=== PATIENT | female | born 1990 | race Caucasian/White ===

== ENCOUNTER 2021-07-28 13:40 | Outpatient (CLI) | payer BC, SELFPAY ==
--- NOTE | ~2021-07-28 | US_ITS ---
EXAMINATION: US OB limited DATE: 07/28/2021 15:55 INDICATION: Leaking fluids during third trimester . TECHNIQUE: Real-time ultrasound of the pelvis was performed. The interpreting radiologist was not pre sent for the study. COMPARISON: None. FINDINGS: There is a single living fetus in vertex presentation. The placenta is anterior. heart rate is 126 beats per minute (bpm). The amniotic fluid index is 15.0 cm, which is normal (normal range 6.9-2 7.9 cm). IMPRESSION: 1. Single living fetus in vertex presentation with heart rate of 126 bpm. 2. Normal amniotic fluid index of 15.0 cm. Reviewed, dictated and finalized at location B. LLE TRANSCRIBER IMPRESSION: 1. Single living fetus in vertex presentation with heart rate of 126 bpm . 2. Normal amniotic fluid index of 15.0 cm.
[2021-07-28 14:15] VITALS: BP 124/75; PULSE 108
[2021-07-28 14:16] VITALS: BP 121/74; PULSE 97
[2021-07-28 14:30] VITALS: BP 133/82; PULSE 96
[2021-07-28 14:46] VITALS: BP 125/78; PULSE 99
[2021-07-28 15:00] VITALS: BP 125/83; PULSE 92
--- NOTE | 2021-07-28 15:12 | PC.NURSE ---
1503- called,informed pt came in stating she has been leaking fluid since last Wednesday or Wednesday. She states today has been a bit more, and has noticed it 3 times since she woke up. ROM plus is negative, orders received for CARINE and if WNL may discharge home.
--- NOTE | 2021-07-28 15:23 | PM.OBTRLD ---
OB - Triage/Final Diagnosis Visit Information Date of evaluation: 07/28/21 Reason for evaluation: other (rule out rupture of membranes) Comments/Additional reasons for admission: I have assessed the risk for this patient, Dee Moy, and determined that she would benefit from observation care. Evaluation Vital signs: Vital Signs - 24 hr 07/28/21 14:15 07/28/21 14:16 07/28/21 14:30 Pulse Rate 108 H 97 96 Blood Pressure 124/75 121/74 133/82 07/28/21 14:46 07/28/21 15:00 Pulse Rate 99 92 Blood Pressure 125/78 125/83
== END 2021-07-28 16:20 | disposition home or self-care (01) ==
LOC: ANHOBOP 13:56 → ANHLDR 14:00
PROVIDERS: PCP Family Medicine; Visit Provider Obstetrics & Gynecology
DX: O42.913 Preterm premature rupture of membranes, unspecified as to length of time between rupture and onset of labor, third trimester (principal); Z3A.35 35 weeks gestation of pregnancy
CPT/HCPCS: 59025; 76815; 84112; 99199

== ENCOUNTER 2021-08-21 14:20 | Outpatient (CLI) | payer BC, SELFPAY ==
[2021-08-21 15:29] LABS: Hemoglobin 11.1 g/dL (12.0-15.0); Mean Corpuscular HGB Conc 32.6 g/dl (32-36); Mean Corpuscular Hemoglobin 28.2 pg (26-34); Mean Corpuscular Volume 86.5 fl (80-100); Platelet Count Result 253 k/mm3 (150-375); Red Blood Count 3.93 M/mm3 (4.2-5.4); Red Cell Distribution Width 13.3 % (11.5-14.5); White Blood Count 9.7 K/mm3 (4.5-10.0)
[2021-08-22 10:07] LABS: Rapid Plasma Reagin Non-Reactive (NonReactive)
== END 2021-08-21 14:21 | disposition home or self-care (01) ==
LOC: ANHLAB 14:23
PROVIDERS: PCP Family Medicine; Visit Provider Obstetrics & Gynecology
DX: Z01.818 Encounter for other preprocedural examination (principal)
CPT/HCPCS: 36415; 85027; 86592; 86850; 86900; 86901

== ENCOUNTER 2021-08-22 07:59 | Inpatient (IN) | payer BC, SELFPAY ==
--- NOTE | 2021-08-21 07:54 | P.HP_ITS ---
H&P: HPI History of Present Illness Date/Time: 08/21/21 07:54 31-year-old 3 para 1 this last menstruated unknown EDC is 08/28/2021 confirmed by early ultrasound presents for repeat section at term. She has an unfavorable cervix with a large baby. She declined . Risks and benefits of dissection reviewed Chief Complaint: Repeat section at term Review of Systems Review of Systems: All systems reviewed & are unremarkable except as noted in HPI and below PMFSH Family History Family History Father Mother High cholesterol Social History Social History Substance use: never Spiritual care concerns: No Meds Home Medications and Allergies Home Medications Medication Instructions Recorded Confirmed Type PNV cmb#95-ferrous fumarate-FA 1 tablet PO DAILY 08/08/21 08/08/21 History [] Allergies Allergy/AdvReac Type Severity Reaction Status Date / Time No Known Allergies Allergy Verified 08/08/21 12:33 Exam Const: General: no acute distress Eyes: General: appearance normal, both eyes and all related structures Neck: Neck: supple and no JVD Thyroid: thyroid normal Resp: Effort & Inspection: normal respiratory effort Auscultation: clear to auscultation bilaterally Cardio: Rate: regular rate Rhythm: regular rhythm GI: Inspection: non-distended GI Palp: Yes Soft to palpation, No Tenderness to palpation present (GI) and No Guarding due to palpation present (GI) Auscultation: normal bowel sounds : External Female Exam: normal external appearance Speculum Exam - Vagina: normal appearance of the vagina Speculum Exam - Cervix: normal appearance of the cervix Bimanual exam- vagina & uterus: enlarged (Gravid soft nontender) Skin: General skin exam: no rashes or lesions noted Extrem: General: normal to inspection and no edema Psych: Mental Status: mental status grossly normal Affect: normal affect Assessment and Plan Additional Plan Impression: Term with previous section plan: Repeat low- transverse section
[2021-08-22] VITALS (53 sets, daily range): BP systolic 85–137; BP diastolic 42–84; PULSE 60–142; RESP 15–18; TEMP 36.7–36.8; O2SAT 81–100; BMI 42.8
--- NOTE | 2021-08-22 07:26 | WPDHPUPDATE1 ---
History and Physical Update Update Date/Time: 08/22/21 07:26 History and Physical has been reviewed, including an updated exam of the patient. There are NO changes in the patient's condition. Risks, benefits, and alternatives have been discussed and questions answered. Patient agrees to proceed with procedure.
--- NOTE | 2021-08-22 08:18 | WPDANESEPP ---
Anes - Eval Pre Procedure Procedure: Operation Date: 08/22/21 10:00 Proposed Procedures p Repeat Section - Prashanth Singh MD Date/Time: 08/22/21 08:18 Pre Op Diagnosis: C Section Patient Data Age: 31 Gender: F Height: 1.7 m Weight: 124.2 kg Allergies Allergy/AdvReac Type Severity Reaction Status Date / Time No Known Allergies Allergy Verified 08/08/21 12:33 Home Medications Medication Instructions Recorded Confirmed Type PNV cmb#95-ferrous fumarate-FA 1 tablet PO DAILY 08/08/21 08/08/21 History [] hydrocodone-acetaminophen 1 tablet PO Q4H PRN #30 tablet 08/22/21 Rx Patient hx anesthesia problems: none Family hx anesthesia problems: none Results Review: All pre-operative results and documents have been reviewed as part of the pre-operative evaluation. [facility] Family History Family History Father Mother High cholesterol Social History Social History Substance use: never Spiritual care concerns: No Exam Day of Procedure 08/22/21 08:18
[2021-08-22] MEDS: LACTATED RINGERS 1,000 ML 125 ML IV CONT (08:30)
--- NOTE | 2021-08-22 08:30 | LDADM ---
This patient, Dee Moy, was admitted to Labor/Delivery/Recovery 119 on 08/22/21 at 07:59. Plans for labor, pain management and were discussed with patient. Patient/family oriented to hospital policies and general routines including ID bracelet, bed and alarms, visiting hours, pain management, procedures, bathroom and other care routines, personal items, smoking policy, room service/diet and guest tray routines, security routines, and visiting hours. Patient/Family are encouraged to report perceived risks to care and to ask questions if they do not understand what they are told or what they should do. See OBIX for further documentation.
[2021-08-22 09:32] LABS: Amphetamine Screen Urine Negative (Negative); Barbiturate Screen Urine Negative (Negative); Benzodiazepines Screen Urine Negative (Negative); Cannabinoid Screen Urine Negative (Negative); Cocaine Screen Urine Negative (Negative); Methadone Screen Urine Negative (Negative); Opiate Screen Urine Negative (Negative); Phencyclidine Screen Urine Negative (Negative)
[2021-08-22] MEDS: ceFAZolin 3 GM/D5W 100 ML 100 ML IVPB (10:02)
--- NOTE | 2021-08-22 10:06 | WPDANESEFPP ---
Anes - Eval Final PreProcedure Day of Procedure 08/22/21 10:06 Patient weight: morbidly obese Heart: regular rate and rhythm Lungs: clear to auscultation Airway: Mallampati scale Neurological: alert and oriented Last oral intake: >/= 8 hours ASA classification: II Emergent: no Anesthetic plan: proceed Anesthesia type and monitoring: regional spinal and standard monitoring Results Review: All pre-operative results and documents have been reviewed as part of the pre-operative evaluation. Informed Consent: The patient's anesthetic plan and its attendant risks and benefits were discussed with the patient/family/POA. Questions were solicited and answers provided to the satisfaction of the patient/family/POA.
[2021-08-22] MEDS: ONDANSETRON INJ 4 MG/2 ML VIAL IV PUSH (10:50)
--- NOTE | 2021-08-22 10:59 | W.PM.PROC2 ---
Procedure Note - Detailed Date of Procedure 08/22/21 Pre-op Diagnosis C Section Post-op Diagnosis same Procedure Performed Repeat low-transverse section Surgeon Prashanth Singh MD Anesthesia spinal Indications This is a 31-year-old multipara with previous section expected large baby Findings 9lb 3oz male with Apgars of 9 and 9. Normal-appearing ovaries and tubes were seen. There was some scar tissue from a previous Description of Procedure The patient was prepped draped in normal sterile fashion placed in the supine position. Under excellent spinal anesthetic the abdomen was entered through the previous Pfannenstiel incision. This regresses layers of fascia. Fascia was incised in upward outward fashion bilaterally. Underlying muscles sharply dissected prior peritoneum elevated Isabel clamps and by sharp dissection carried superiorly inferiorly down the bladder there was some omentum that was stuck anteriorly and this was sharply dissected with monopolar polar cautery. Bladder blade was placed. A low-transverse incision made. Bladder blade returned. The head delivered in HONEY position. Anterior posterior shoulder delivered spontaneously. Cord clamped x2 and cut and passed off the table given Apgars of 9 [id number]. Cord blood was drawn placenta delivered intact manually. Uterus delivered on the abdomen wrapped in moist towel. After assuring no membranes or debris remained in the uterus, the uterus was closed with continuous running locking 0 Vicryl from lateral edge to lateral edge followed by a 2nd imbricating running locking 0 Vicryl from lateral edge to lateral edge. Hemostasis was assured and blood loss was estimated. Ovaries and tubes appeared within normal limits and the uterus returned the abdomen. Laps removed and accounted for and the hysterotomy incision inspected 1 last time and noted be hemostatic. The fascia was closed with continuous running 0 Vicryl from lateral edge to midline bilaterally and tied together. The skin closed with 4 Monocryl and glue. Blood loss for QBL was 505. All sponge, needle, instrument counts were correct. There were no immediate complications Estimated Blood Loss 505 Drains No Packing No Pathology none sent Complications No immediate complications Condition stable
[2021-08-22] MEDS: OXYTOCIN 30 UNITS/NS 500 ML 30 UNITS/500 ML BAG 125 UNITS IV CONT (11:39)
[2021-08-22] MEDS: fentaNYL CITRATE INJ (*CRX) 100 MCG/2 ML VIAL 25 MCG IV PUSH (13:08)
--- NOTE | 2021-08-22 13:48 | OBPPTRN ---
Patient transferred to post room # 282 via stretcher accompanied by spouse and . Support person present. PT introductions made and plan of care discussed per post op c section, pain management, breast feeding, daily care activities. PT and spouse both recipients of such instructions and no barriers to learning. PT received instructions via one to one discussion, mom baby care guide and demonstrations. Oriented to unit, room, information board, rooming in, admission packet and security measures. Patient verbalizes understanding.
--- NOTE | 2021-08-22 16:19 | PC.NURSE ---
1545 - Introductions were made. Primary RN is assisting mother with baby to breast. Latch assessed with space between cheek and breast, tongue sucking nipple and gape is less than 90 degrees. Educated mother on detaching baby from the nipple. Nipple is misshaped. Mother led the discussion of her desires to breastfeed her baby. Reviewed handwashing to prevent infection before and after taking care of her baby. Bilateral breast assessed. Right nipple is slightly red on the tip and the left breast has a bruise on the areola. Discussed how to watch for early feeding cues, place skin to skin, then feeding baby when is ready or every 2-3 hours. Reviewed positioning/alignment. Encouraged mother with infant to the right breast in cross cradle and football multiple times with no effective latching. Mother is learning using nipple to nose with asymmetrical 140-degree latch. Nipple shield provided to mother due to ineffective . Reviewed cleaning the nipple shield and application. Discussed with mom the nipple shield precautions and possible complications. Mom voiced understanding of the importance of hand expression, nipple stimulation and initiating a pumping schedule if continues to nurse with the shield for three consecutive feedings. The training tool is to be used with baby, then over time take it off and attempt to latch without the nipple shield. Infant assisted to right breast with the nipple shield in football position. Occasional swallowing heard. She denies any nipple discomfort. Reviewed there is to be no pain with , how to detach from the breast, visuals to watch for to confirm effective . Reviewed effective latching with resources tool/handout/mom and baby guide. Mother was interested in learning hand expression so RN helped with demonstration with breast tool and handout. Mother finger fed the colostrum inside the nipple shield to her baby. Nipple tenderness is relieved with improving positioning and effective latching. was able to maintain effective latch with nipple shield for 10-15 min., then infant detached. 1600 - Assisted mother with infant to the left breast with nipple shield in the football position. maintains latch, occasional swallowing heard. detached for checking latch and colostrum seen in the nipple shield. Latched back to breast with the nipple shield. Mother plans to finger feed the colostrum to her after practicing . Mother has verbalized understanding watching for feeding cues for responsive feeding or how to stimulate to initiate from the start of the last feeding. Mother voiced understanding to feed infant when she sees feeding cues, 8-12 times in 24 hours approximately every 2-3 hours from the start of the last feeding or she has discomfort with nursing. Reported to primary RN.
[2021-08-22] MEDS: LANOLIN (LANSINOH) 7.5 GM CREAM 1 APPLIC TOPICAL (17:14)
[2021-08-22] MEDS: DEXTROSE 5%/0.45% SOD CHL 1,000 ML 125 ML IV CONT (17:16)
[2021-08-22] MEDS: HYDROcodone/acetaminophen (*CRX) 5-325 MG TABLET 1 TAB PO ×2 (17:17→23:04)
[2021-08-22] MEDS: SIMETHICONE 80 MG TAB.CHEW PO (17:17)
[2021-08-22] MEDS: DOCUSATE SODIUM 100 MG CAPSULE PO (17:17)
[2021-08-22] MEDS: KETOROLAC 30 MG/ML VIAL (*BKC) IV PUSH (17:19)
[2021-08-22] MEDS: IBUPROFEN 600 MG TABLET PO (23:04)
[2021-08-23 04:00] VITALS: BP 116/64; PULSE 76; RESP 18; TEMP 36.7
[2021-08-23 05:07] LABS: Basophils Percent Auto 0.4 % (0.2-1.2); Eosinophils Absolute Auto 0.1 K/mm3 (0-0.3); Eosinophils Percent Auto 0.7 % (0-4.4); Hematocrit 30.9 % (37.0-47.0); Hemoglobin 9.8 g/dL (12.0-15.0); Immature Granulocyte Absolute 0.09 K/mm3 (0.00-0.031); Immature Granulocyte Percent A 0.9 % (0-0.5); Lymphocytes Absolute Auto 1.56 K/mm3 (0.9-3.2); Lymphocytes Percent Auto 15.4 % (18.3-44.2); Mean Corpuscular HGB Conc 31.7 g/dl (32-36); Mean Corpuscular Hemoglobin 27.8 pg (26-34); Mean Corpuscular Volume 87.5 fl (80-100); Mean Platelet Volume 11.1 fl (7.4-10.4); Monocytes Percent Auto 9.6 % (2.6-8.5); Neutrophils Absolute Auto 7.4 K/mm3 (1.3-6.7); Platelet Count Result 215 k/mm3 (150-375); Red Blood Count 3.53 M/mm3 (4.2-5.4); Red Cell Distribution Width 13.3 % (11.5-14.5); White Blood Count 10.1 K/mm3 (4.5-10.0)
--- NOTE | 2021-08-23 07:08 | PM.OBPNVD ---
OB - PN: Subj Subjective Date/time seen: 08/23/21 07:08 Patient comments: no complaints and pain well controlled baby status: doing well and nursing well OB - PN: Obj Data Labs CBC & Chem 7: 08/23/21 04:18 Labs: Laboratory Results - last 24 hr 08/22/21 08/23/21 08:57 04:18 WBC 10.1 H RBC 3.53 L Hgb 9.8 L Hct 30.9 L MCV 87.5 MCH 27.8 MCHC 31.7 L RDW 13.3 Plt Count 215 MPV 11.1 H Immature Gran % (Auto) 0.9 H Neut % (Auto) 73.0 Lymph % (Auto) 15.4 L [place] % (Auto) 9.6 H Eos % (Auto) 0.7 Baso % (Auto) 0.4 Lymph # (Auto) 1.56 [place] # (Auto) 1.0 H Eos # (Auto) 0.1 Baso # (Auto) 0.0 Abs Immat Gran (auto) 0.09 H Absolute Neuts (auto) 7.4 H Absolute Nucleated RBC 0.0 Nucleated RBC % 0.0 Urine Opiates Screen Negative Urine Methadone Screen Negative Ur Barbiturates Screen Negative Ur Phencyclidine Scrn Negative Ur Amphetamine Screen Negative U Benzodiazepines Scrn Negative Urine Cocaine Screen Negative U Cannabinoids Screen Negative OB - PN A/P Plan day: 1 Time Spent With Patient Time: Total time spent is greater than 50% in coordination of care (as documented) at patient's floor/unit and/or counseling patient: Time with patient: less than 15 minutes Review of Systems Review of Systems: All systems reviewed & are unremarkable except as noted in HPI and below Exam Const: General: no acute distress Eyes: General: appearance normal, both eyes and all related structures Neck: Neck: supple and no JVD Thyroid: thyroid normal Resp: Effort & Inspection: normal respiratory effort Auscultation: clear to auscultation bilaterally Cardio: Rate: regular rate Rhythm: regular rhythm GI: Inspection: non-distended GI Palp: Yes Soft to palpation, No Tenderness to palpation present (GI) and No Guarding due to palpation present (GI) Auscultation: normal bowel sounds : General: Yes bladder normal to palpation External Female Exam: normal external appearance Speculum Exam - Vagina: normal vaginal discharge and No vaginal bleeding Speculum Exam - Cervix: nontender Bimanual exam- vagina & uterus: bladder normal to palpation and No Cervical tenderness present OB/external & speculum: No vaginal bleeding Skin: General skin exam: no rashes or lesions noted Extrem: General: normal to inspection and no edema Psych: Mental Status: mental status grossly normal Affect: normal affect
[2021-08-23] MEDS: HYDROcodone/acetaminophen (*CRX) 10-325 MG TABLET 1 TAB PO ×2 (08:38→13:29)
[2021-08-23] MEDS: MULTIVIT/MIN/PREN/FOL AC/IRON TABLET 1 TAB PO (08:39)
[2021-08-23] MEDS: IBUPROFEN 600 MG TABLET PO ×2 (08:39→17:48)
[2021-08-23] MEDS: SIMETHICONE 80 MG TAB.CHEW PO ×3 (08:39→21:11)
[2021-08-23] MEDS: DOCUSATE SODIUM 100 MG CAPSULE PO ×2 (08:40→21:11)
[2021-08-23 09:00] VITALS: PULSE 76; RESP 18; O2SAT 99
--- NOTE | 2021-08-23 14:42 | PC.NURSE ---
1215 RN assistance given with breast feeding. awake and eager. unable to latch without nipple shield. Latches with nipple shield, but begins sucking as soon as nipple touches his mouth. Latch is shallow as a result, instructed mom on techniques to roll more of areola into baby's mouth. Instructed that if pain continues beyond 2-3 draws by baby to break suction with finger and relatch. Mother can identify correct latch and placement. colostrum visualized in nipple shield as baby is removed from breast. mother placed baby on chest to do some skin to skin as baby was falling asleep on breast. infant begins rooting again. Mother states she is sore and appears very tired. Mother wishes to give baby a supplemental bottle. mother given hydrogel pads and warm moist wash clothes for comfort and healing.
[2021-08-23] MEDS: HYDROcodone/acetaminophen (*CRX) 5-325 MG TABLET 1 TAB PO ×2 (17:45→21:11)
[2021-08-23 19:30] VITALS: BP 122/74; PULSE 64; RESP 18; TEMP 36.8; O2SAT 98
[2021-08-24] MEDS: IBUPROFEN 600 MG TABLET PO ×3 (01:54→17:45)
[2021-08-24] MEDS: HYDROcodone/acetaminophen (*CRX) 5-325 MG TABLET 1 TAB PO ×3 (01:55→15:56)
[2021-08-24 08:00] VITALS: BP 122/71; PULSE 80; RESP 18; TEMP 36.8; O2SAT 99
[2021-08-24] MEDS: POLYSACCHARIDE IRON COMPLEX 150 MG CAPSULE PO (08:57)
[2021-08-24] MEDS: DOCUSATE SODIUM 100 MG CAPSULE PO (08:57)
[2021-08-24] MEDS: MULTIVIT/MIN/PREN/FOL AC/IRON TABLET 1 TAB PO (08:58)
--- NOTE | 2021-08-24 09:18 | P.DS_ITS ---
DS: Admitting Diagnosis Discharge Date 08/24/2021 Admitting Diagnosis Term /previous section/declines DS: Summary Hospital Course Hospital Course: Patient was admitted for repeat section. Her 48hour course was unremarkable. She remained afebrile. She was up, voiding without difficulty, ambulating, generally without complaints. Incision was clean dry an d intact and there were no complications Time Spent with Patient Time attestation: Total time spent providing and/or coordinating discharge services: Discharge Plan Discharge Attending physician on discharge: Prashanht Singh Discharging Clinician: Prashanth Singh Patient Disposition: Home, Self-Care Activity: may shower, no straining and pelvic rest Diet: heart healthy Wound Care Instructions: follow printed instructions Patient Instructions: Antibiotic Form Stand Alone Forms: General Discharge Information Follow-up/Referrals: Prashanth Singh MD [Physician] - Discharge Medications: New hydrocodone-acetaminophen 5-325 mg tablet 1 tablet PO Q4H PRN (Reason: pain) Qty: 30 RF: 0 Continued PNV cmb#95-ferrous fumarate-FA [] 28 mg iron- 800 mcg Tablet 1 tablet PO DAILY RF: 0 Date of admission: 08/22/21 07:59 Primary Care Provider: LarisaDwain Admitting Provider: Prashanth Singh Attending physician on admission: Prashanth Singh Condition: Stable
--- NOTE | 2021-08-24 09:21 | PM.OBPNVD ---
OB - PN: Subj Subjective Date/time seen: 08/24/21 09:21 Patient comments: no complaints and pain well controlled baby status: doing well and nursing well OB - PN: Obj Data Labs CBC & Chem 7: 08/23/21 04:18 OB - PN A/P Plan day: 2 Plan: routine care, discharge home and follow up 6 weeks (4 weeks) Time Spent With Patient Time: Total time spent is greater than 50% in coordination of care (as documented) at patient's floor/unit and/or counseling patient: Time with patient: less than 15 minutes Review of Systems Review of Systems: All systems reviewed & are unremarkable except as noted in HPI and below Exam Const: General: no acute distress Eyes: General: appearance normal, both eyes and all related structures Neck: Neck: supple and no JVD Thyroid: thyroid normal Resp: Effort & Inspection: normal respiratory effort Auscultation: clear to auscultation bilaterally Cardio: Rate: regular rate Rhythm: regular rhythm GI: Inspection: non-distended GI Palp: Yes Soft to palpation, No Tenderness to palpation present (GI) and No Guarding due to palpation present (GI) Auscultation: normal bowel sounds : General: Yes bladder normal to palpation External Female Exam: normal external appearance Speculum Exam - Vagina: normal vaginal discharge and No vaginal bleeding Speculum Exam - Cervix: nontender Bimanual exam- vagina & uterus: bladder normal to palpation and No Cervical tenderness present OB/external & speculum: No vaginal bleeding Skin: General skin exam: no rashes or lesions noted Extrem: General: normal to inspection and no edema Psych: Mental Status: mental status grossly normal Affect: normal affect
--- NOTE | 2021-08-24 17:22 | WPDANLDPN2 ---
Anes-Prog Note L&D Date/Time: 08/24/21 17:22 Comfortable throughout: section Neuraxial method: spinal Epidural/Spinal procedure site: clean & non-tender Neuro status: Neuro function grossly intact. Cardiovascular status: normal Respiratory status: normal Airway patency: baseline Mental status: baseline Post-Op hydration status: normal Vital Signs: Last Vital Signs Temp 36.8 C 08/24/21 08:00 Pulse 80 08/24/21 08:00 Resp 18 08/24/21 08:00 BP 122/71 08/24/21 08:00 Pulse Ox 99 08/24/21 08:00 Pain score (VAS): 08/04 Post-procedural complaints: none Patient feedback: Patient satisfied with anesthetic care.
--- NOTE | 2021-08-24 17:22 | WPDANLDNPN2 ---
Anes-Prog Note L&D-Neuraxial Date/Time: 08/24/21 17:22 Neuraxial medications: intrathecal PF morphine Opiod-related complaints: none Patient feedback: Patient satisfied with post-operative pain management.
[2021-08-25 13:14] VITALS: BP 129/62; PULSE 72; RESP 20; TEMP 36.9; O2SAT 99
== END 2021-08-24 17:53 | disposition home or self-care (01) | DRG 788 ==
LOC: ANHLDR 08:02 → ANHOB2 14:14
PROVIDERS: Admitting Provider Obstetrics & Gynecology; PCP Family Medicine; Visit Provider Obstetrics & Gynecology
PROC: 10D00Z1 Extraction of Products of Conception, Low, Open Approach (ICD-10-PCS; CPT 59514; principal; 2021-08-22 10:00)
DX: O34.219 Maternal care for unspecified type scar from previous cesarean delivery (principal); Z3A.39 39 weeks gestation of pregnancy; Z37.0 Single live birth
CPT/HCPCS: 36415; 80307; 85025; A9270; J0131; J0461; J0690; J1885; J2274; J2370; J2405; J2590; J3010; J7120

== ENCOUNTER 2023-02-15 15:33 | Observation (INO) | payer BC, SELFPAY ==
[2023-02-15 15:58] VITALS: BP 146/82; PULSE 83
[2023-02-15 16:00] VITALS: BP 141/81; PULSE 83
[2023-02-15 16:04] VITALS: BMI 39.2
--- NOTE | 2023-02-15 16:05 | OBADM ---
This patient, Dee Moy, admitted to the OB room OB Post 116 for observation. pt state she has vaginal pressure comes and goes. feels chill and hot on and off. recommended to come to hospital for evaluation. Patient/family oriented to hospital policies and general routines including ID bracelet, bed and alarms, visiting hours, pain management, procedures, bathroom and other care routines, personal items, smoking policy, room service/diet, and visiting hours. Patient/Family are encouraged to report perceived risks to care and to ask questions if they do not understand what they are told or what they should do.
[2023-02-15 16:11] LABS: Appearance Urine Clear (Clear); Bilirubin Urine Negative (Negative); Blood Urine Negative (Negative); Color Urine Yellow (Yellow); Glucose Urine UA Negative (Negative); Ketones Urine 2+ mg/dL (Negative); Leukocyte Esterase Ur Negative LEU/UL (NEGATIVE); Nitrate Urine Negative (Negative); Protein Urine Negative (Negative); Specific Grav Ur 1.012 (1.001-1.035); Urobilinogen Urine 0.2 mg/dL (<2.0); pH Urine 6.5 (5.0-9.0)
[2023-02-15 16:15] VITALS: BP 136/80; PULSE 86
[2023-02-15 16:28] LABS: Add Urine Microscopic? NO
[2023-02-15 16:30] VITALS: BP 141/82; PULSE 83
[2023-02-15 16:45] VITALS: BP 148/89; PULSE 78
[2023-02-15 17:01] VITALS: BP 142/83; PULSE 80
--- NOTE | 2023-02-16 16:17 | PM.OBTRLD ---
OB - Triage/Final Diagnosis Visit Information Reason for evaluation: threatened labor Comments/Additional reasons for admission: I have assessed the risk for this patient, Dee Moy, and determined that she would benefit from observation care. Evaluation Laboratory results: Laboratory Tests 02/15/23 15:50 Urine Color Yellow Urine Appearance Clear Urine pH 6.5 Ur Specific [place] 1.012 Urine Protein Negative Urine Glucose (UA) Negative Urine Ketones 2+ H Ur Blood (Man) Negative Urine Nitrate Negative Urine Bilirubin Negative Urine Urobilinogen 0.2 Ur Leukocyte Esterase Negative Vital signs: Vital Signs - 24 hr 02/15/23 16:30 02/15/23 16:45 02/15/23 17:01 Pulse Rate 83 78 80 Blood Pressure 141/82 H 148/89 H 142/83 H
== END 2023-02-15 17:40 | disposition home or self-care (01) ==
PROVIDERS: Admitting Provider Obstetrics & Gynecology; PCP Internal Medicine; Visit Provider Obstetrics & Gynecology
DX: O47.03 False labor before 37 completed weeks of gestation, third trimester (principal); Z3A.31 31 weeks gestation of pregnancy
CPT/HCPCS: 81003; 87086; 87088; G0378; G0379

== ENCOUNTER 2023-04-10 08:58 | Outpatient (CLI) | payer BC, SELFPAY ==
[2023-04-10 09:11] LABS: Hematocrit 36.8 % (37.0-47.0); Hemoglobin 12.7 g/dL (12.0-15.0); Mean Corpuscular HGB Conc 34.5 g/dl (32-36); Mean Corpuscular Hemoglobin 31.4 pg (26-34); Mean Corpuscular Volume 90.9 fl (80-100); Mean Platelet Volume 10.9 fl (7.4-10.4); Platelet Count Result 192 k/mm3 (150-375); Red Blood Count 4.05 M/mm3 (4.2-5.4); Red Cell Distribution Width 12.4 % (11.5-14.5); White Blood Count 9.4 K/mm3 (4.5-10.0)
[2023-04-12 10:31] LABS: Rapid Plasma Reagin Non-Reactive (NonReactive)
== END 2023-04-10 08:59 | disposition home or self-care (01) ==
PROVIDERS: PCP Internal Medicine; Visit Provider Obstetrics & Gynecology
DX: Z01.818 Encounter for other preprocedural examination (principal)
CPT/HCPCS: 36415; 85027; 86592; 86850; 86900; 86901

== ENCOUNTER 2023-04-12 05:37 | Inpatient (IN) | payer BC, SELFPAY ==
--- NOTE | 2023-03-22 15:45 | PC.NURSE ---
Verified with OR schedule and patient--repeat C/S with tubal on 04/12/23 at 0730 Patient given requisition for lab draw on 04/10/23
--- NOTE | 2023-04-06 16:31 | PM.IMHP ---
H&P: HPI History of Present Illness Date/Time: 04/06/23 16:31 Chief Complaint: Repeat section with bilateral tubal ligation Narrative: This is a 33-year-old 3 para 2 whose last menstrual period is unknown, EDC is 04/16/2023 confirmed bilateral week ultrasound presents at 39 weeks gestation for repeat section and bilateral tubal ligation. has been uncomplicated. She had an abnormal 1hour diabetic test but passed 3 hour test for over 4 normal. She desires permanent irreversible sterilization. Permanence and alternatives reviewed in great detail. She had all questions answered and asked to proceed PMF Family History Family History Father Mother High cholesterol Colostomy in place Colonic disorder Social History Social History Smoking status: Never smoker Second hand tobacco smoke exposure: No Substance use: current Last use: 08/29/22 Spiritual care concerns: No Meds Home Medications and Allergies Home Medications Medication Instructions Recorded Confirmed Type vit no.95-ferrous 1 tablet PO DAILY 08/08/21 08/08/21 History fumarate 28 mg-folic acid 800 mcg tablet () Allergies Allergy/AdvReac Type Severity Reaction Status Date / Time No Known Allergies Allergy Verified 08/08/21 12:33 Exam Const: General: cooperative, healthy appearing, comfortable and overweight Orientation/consciousness: oriented to person, oriented to place and oriented to time HENMT: Head: normal to inspection Resp: Effort & Inspection: normal respiratory effort Cardio: Rate: regular rate Rhythm: regular rhythm Heart sounds: S1 normal heart sound present and S2 normal heart sound present GI: Inspection: normal to inspection (The uterus is gravid and soft) : External Female Exam: normal external appearance Speculum Exam - Vagina: normal appearance of the vagina Speculum Exam - Cervix: normal appearance of the cervix Assessment and Plan Assessment and plan (1) Term : Code(s): Z34.90 - Encounter for supervision of normal , unspecified, unspecified trimester Status: Acute (2) Previous section: Code(s): Z98.891 - History of uterine scar from previous surgery Status: Acute (3) Sterilization: Code(s): Z30.2 - Encounter for sterilization Status: Acute Plan Proceed with repeat section bilateral tubal ligation
[2023-04-12] VITALS (56 sets, daily range): BP systolic 91–151; BP diastolic 40–97; PULSE 45–112; RESP 12–20; TEMP 36.1–37.1; O2SAT 95–100; BMI 41.1
--- NOTE | 2023-04-12 05:37 | LDADM ---
This patient, Dee Moy, was admitted to Labor/Delivery/Recovery 120 on 04/12/23 at 05:37. Plans for labor, pain management and were discussed with patient. Patient/family oriented to hospital policies and general routines including ID bracelet, bed and alarms, visiting hours, pain management, procedures, bathroom and other care routines, personal items, smoking policy, room service/diet and guest tray routines, infant security routines, and visiting hours. Patient/Family are encouraged to report perceived risks to care and to ask questions if they do not understand what they are told or what they should do. See OBIX for further documentation.
--- NOTE | 2023-04-12 06:40 | WPDHPUPDATE1 ---
History and Physical Update Update Date/Time: 04/12/23 06:40 History and Physical has been reviewed, including an updated exam of the patient. There are NO changes in the patient's condition. Risks, benefits, and alternatives have been discussed and questions answered. Patient agrees to proceed with procedure.
[2023-04-12] MEDS: LACTATED RINGERS 1,000 ML 125 ML IV CONT (07:03)
--- NOTE | 2023-04-12 07:26 | P.PNAN_ITS ---
Anes - Initial Pre Proc Eval Procedure: Operation Date: 04/12/23 07:30 Proposed Procedures p Repeat Section with Tubal Ligation - Prashanth Paz MD Date/Time: 04/12/23 07:26 Surgeon: Prashanth Paz MD Pre Op Diagnosis: C/S Patient Data Age: 33 Gender: F Height: 1.7 m Weight: 119 kg Last Vital Signs Temp 36.4 C 04/12/23 06:56 Pulse 76 04/12/23 07:01 BP 128/78 04/12/23 07:01 Pulse Ox 99 04/12/23 07:24 O2 Del Method Room Air 04/12/23 05:37 Allergies Allergy/AdvReac Type Severity Reaction Status Date / Time No Known Allergies Allergy Verified 08/08/21 12:33 Home Medications Medication Instructions Recorded Confirmed Type vit no.95-ferrous 1 tablet PO DAILY 08/08/21 08/08/21 History fumarate 28 mg-folic acid 800 mcg tablet () hydrocodone 5 mg-acetaminophen 325 1 tablet PO Q4H PRN pain #30 tabs 04/12/23 Rx mg tablet Patient hx anesthesia problems: none Family hx anesthesia problems: none Results Review: All pre-operative results and documents have been reviewed as part of the pre- operative evaluation. [facility] Past Medical History Medical History (Updated 04/12/23 @ 07:26 by Prashanth Chin MD) Morbid obesity Family History Family History Father Mother High cholesterol Colostomy in place Colonic disorder Social History Social History Smoking status: Current every day smoker Second hand tobacco smoke exposure: Yes Substance use: current Last use: 08/29/22 Lack of Transportation: No Lack of Food: Never True Current Housing: I Have Housing Concerned About Future Housing: No Difficulty Paying Gas/Electric Bills: No Difficulty Paying for Meds: No Currently Unemployed: No Education: Bachelor's Degree Difficulty w/ Childcare or Family Care: No Spiritual care concerns: No Anes - Eval Final PreProcedure Day of Procedure 04/12/23 07:26 Patient weight: morbidly obese Heart: regular rate and rhythm Lungs: clear to auscultation Airway: Mallampati scale class 1 Neurological: alert and oriented Last oral intake: >/= 8 hours ASA classification: III Emergent: no Anesthetic plan: proceed Anesthesia type and monitoring: regional spinal and standard monitoring Results Review: All pre-operative results and documents have been reviewed as part of the pre- operative evaluation. Informed Consent: The patient's anesthetic plan and its attendant risks and benefits were discussed with the patient/family/POA. Questions were solicited and answers provided to the satisfaction of the patient/family/POA.
[2023-04-12] MEDS: ceFAZolin 2 GM/D5W 50 ML 2 GM/50 ML BAG IVPB (07:30)
--- NOTE | 2023-04-12 08:14 | P.OP_ITS ---
Procedure Note - Detailed Date of Procedure 04/12/23 Pre-op Diagnosis C/S sterilization Post-op Diagnosis Same Procedure Performed Repeat low-transverse section and bilateral tubal ligation Surgeon Prashanth Paz MD Anesthesia Spinal Indications This is a 33-year-old female at term with previous section and desirous of permanent sterilization Findings Female Apgars 8 and 8 at 1 and 5minutes respectively Description of Procedure Patient was prepped draped in the normal sterile fashion placed in the dorsal lithotomy supine position. Under excellent spinal anesthetic the abdomen is entered in Pfannenstiel fashion progressive layers fascia. Fascia incised midline carried in upward out fashion bilaterally. Underlying muscles were sharply dissected. Parietal medium elevated by Isabel clamps and by sharp dissection carried superiorly and inferiorly dome of the bladder. Bladder blade placed bladder bladder formed bladder blade returned a low-transverse incision made head delivered HONEY position anterior posterior shoulder delivered spontaneously cord clamped x2 and cut passed off the table an excellent cry. Placenta delivered intact manually. Uterus delivered and wrapped in a moist towel after assuring no membranes remained the uterus, uterus closed with continuous running 0 Vicryl from lateral edge to lateral edge followed by 2nd imbricating running locking 0 Vicryl from lateral edge to lateral edge. Hemostasis was assured. The patient was asked 1 last time about sterilization and she consented the right fallopian tube was grasped in a good knuckle of tube formed with the 0 chromic the peritoneum between pierced and each leg proximal and distal were free tied the portion between passed off as portion of right fallopian tube this was repeated on the contralateral tube where the midportion was grabbed a good knuckle of tube formed the distal and proximal legs free tied with 0 chromic in the portion between cut passed off as portion of left fallop khai tube. Hemostasis was assured the uterine incision was packed and 1 last time noted being hemostatic the uterus returned the abdomen. Laps removed and accounted for. The fascia closed with continuous running 0 Vicryl from lateral edge to midline bilaterally. Irrigation subcutaneous layer and the skin closed with 4 Monocryl and glue QBL was 370cc. All sponge, needle, instrument counts were correct. Mom and baby doing fine at the time of this dictation Estimated Blood Loss 370 Drains No Packing No Pathology Yes Complications No immediate complications Condition Stable Disposition PACU
[2023-04-12] MEDS: OXYTOCIN 30 UNITS/NS 500 ML 30 UNITS/500 ML BAG 125 UNITS IV CONT (09:23)
--- NOTE | 2023-04-12 11:15 | PC.NURSE ---
Patient transferred to post room #291 via stretcher. Support person present. Oriented to unit, room, information board, rooming in, admission packet and security measures. Patient verbalizes understanding.
--- NOTE | 2023-04-12 11:27 | PC.NURSE ---
Recovery complete. Patient to nursery to visit with baby level II. Patient transferred upstairs via stretcher at 1108
[2023-04-12] MEDS: KETOROLAC 30 MG/ML VIAL (*BKC) IV PUSH (11:36)
[2023-04-12] MEDS: DEXTROSE 5%/0.45% SOD CHL 1,000 ML 125 ML IV CONT (15:08)
[2023-04-12] MEDS: DOCUSATE SODIUM 100 MG CAPSULE PO (19:36)
[2023-04-12] MEDS: HYDROcodone/acetaminophen (*CRX) 10-325 MG TABLET 1 TAB PO (19:37)
[2023-04-12] MEDS: IBUPROFEN 600 MG TABLET PO (19:37)
[2023-04-13] MEDS: HYDROcodone/acetaminophen (*CRX) 10-325 MG TABLET 1 TAB PO ×5 (04:24→23:29)
[2023-04-13] MEDS: IBUPROFEN 600 MG TABLET PO ×3 (04:26→20:36)
[2023-04-13 04:44] VITALS: BP 121/78; PULSE 73; RESP 17; TEMP 36.8; O2SAT 96
[2023-04-13 04:44] LABS: Basophils Percent Auto 0.3 % (0.2-1.2); Eosinophils Absolute Auto 0.1 K/mm3 (0-0.3); Eosinophils Percent Auto 1.4 % (0-4.4); Hematocrit 32.5 % (37.0-47.0); Hemoglobin 10.8 g/dL (12.0-15.0); Immature Granulocyte Absolute 0.11 K/mm3 (0.00-0.031); Immature Granulocyte Percent A 1.2 % (0-0.5); Lymphocytes Absolute Auto 1.01 K/mm3 (0.9-3.2); Lymphocytes Percent Auto 10.9 % (18.3-44.2); Mean Corpuscular HGB Conc 33.2 g/dl (32-36); Mean Corpuscular Hemoglobin 31.1 pg (26-34); Mean Corpuscular Volume 93.7 fl (80-100); Mean Platelet Volume 11.2 fl (7.4-10.4); Monocytes Absolute Auto 0.8 K/mm3 (0.1-0.6); Monocytes Percent Auto 8.6 % (2.6-8.5); Neutrophils Absolute Auto 7.2 K/mm3 (1.3-6.7); Neutrophils Percent Auto 77.6 % (45.5-73.1); Platelet Count Result 150 k/mm3 (150-375); Red Blood Count 3.47 M/mm3 (4.2-5.4); Red Cell Distribution Width 12.9 % (11.5-14.5); White Blood Count 9.3 K/mm3 (4.5-10.0)
--- NOTE | 2023-04-13 06:55 | P.DS_ITS ---
DS: Admitting Diagnosis Discharge Date 04/14/23 Admitting Diagnosis Term / previous section/ sterilization DS: Discharge Diagnosis Discharge Diagnosis (1) Sterilization: Code(s): Z30.2 - Encounter for sterilization Status: Acute (2) Previous section: Code(s): Z98.891 - History of uterine scar from previous surgery Status: Acute (3) Term : Code(s): Z34.90 - Encounter for supervision of normal , unspecified, unspecified trimester Status: Acute DS: Summary Hospital Course Reason for hospitalization: patient was admitted for repeat section and bilateral tubal ligation at term Hospital Course: The patient underwent repeat low-transverse section and bilateral tubal ligation on 04/12/2023 her hospital course was unremarkable. She remained afebrile. She was up, voiding the difficulty, ambulating, eating regular diet, and generally without complaints. Time Spent with Patient Time attestation: Total time spent providing and/or coordinating discharge services: Exam Const: General: cooperative, healthy appearing and comfortable Orientation/consciousness: oriented to person, oriented to place and oriented to time Resp: Effort & Inspection: normal respiratory effort Cardio: Rate: regular rate Rhythm: regular rhythm Heart sounds: S1 normal heart sound present and S2 normal heart sound present GI: Inspection: normal to inspection and incision ( wound clean dry and intact) DS: Data Data Completed and Pending Pending studies at discharge: Pending at discharge 04/12/23 08:05 Surgical [PTH] Routine Labs on day of discharge: Labs from last 24 hours 04/13/23 03:58 WBC 9.3 RBC 3.47 L Hgb 10.8 L Hct 32.5 L MCV 93.7 MCH 31.1 MCHC 33.2 RDW 12.9 Plt Count 150 MPV 11.2 H Immature Gran % (Auto) 1.2 H Neut % (Auto) 77.6 H Lymph % (Auto) 10.9 L Stephenson % (Auto) 8.6 H Eos % (Auto) 1.4 Baso % (Auto) 0.3 Lymph # (Auto) 1.01 Stephenson # (Auto) 0.8 H Eos # (Auto) 0.1 Baso # (Auto) 0.0 Abs Immat Gran (auto) 0.11 H Absolute Neuts (auto) 7.2 H Absolute Nucleated RBC 0.0 Nucleated RBC % 0.0 Discharge Plan Discharge Attending physician on discharge: Prashanth Mitchell Discharging Clinician: Prashanth Mitchell Patient Disposition: Home, Self-Care Activity: may shower, no straining, may drive after 2 weeks and pelvic rest Diet: heart healthy Wound Care Instructions: follow printed instructions Patient Instructions: Antibiotic Form, How to Stop Smoking (GEN) Stand Alone Forms: General Discharge Information Follow-up/Referrals: Prashanth Mitchell MD [Physician] - Discharge Medications: New hydrocodone-acetaminophen 5-325 mg tablet 1 tablet PO Q4H PRN (Reason: pain) Qty: 30 0RF Continued PNV cmb#95-ferrous fumarate-FA [] 28 mg iron- 800 mcg Tablet 1 tablet PO DAILY Date of admission: 04/12/23 05:37 Primary Care Provider: Jamaal,Giselle Admitting Provider: Prashanth Mitchell Attending physician on admission: Prashanth Mitchell Condition: Stab
--- NOTE | 2023-04-13 06:58 | PM.OBPNVD ---
OB - PN: Subj Subjective Date/time seen: 04/13/23 06:58 Patient comments: no complaints and pain well controlled baby status: doing well and nursing well OB - PN: Obj Data Labs 04/13/23 03:58 Labs: Laboratory Results - last 24 hr 04/13/23 03:58 WBC 9.3 RBC 3.47 L Hgb 10.8 L Hct 32.5 L MCV 93.7 MCH 31.1 MCHC 33.2 RDW 12.9 Plt Count 150 MPV 11.2 H Immature Gran % (Auto) 1.2 H Neut % (Auto) 77.6 H Lymph % (Auto) 10.9 L Hancock % (Auto) 8.6 H Eos % (Auto) 1.4 Baso % (Auto) 0.3 Lymph # (Auto) 1.01 Hancock # (Auto) 0.8 H Eos # (Auto) 0.1 Baso # (Auto) 0.0 Abs Immat Gran (auto) 0.11 H Absolute Neuts (auto) 7.2 H Absolute Nucleated RBC 0.0 Nucleated RBC % 0.0 OB - PN A/P Plan day: 1 Plan: routine care Time Spent With Patient Time: Total time spent is greater than 50% in coordination of care (as documented) at patient's floor/unit and/or counseling patient: Time with patient: less than 15 minutes Exam Const: General: cooperative, healthy appearing and comfortable Nutritional Appearance: average body habitus Orientation/consciousness: oriented to person, oriented to place and oriented to time Resp: Effort & Inspection: normal respiratory effort Cardio: Rate: regular rate Rhythm: regular rhythm Heart sounds: S1 normal heart sound present and S2 normal heart sound present GI: Inspection: normal to inspection and incision ( clean dry and intact)
--- NOTE | 2023-04-13 07:41 | WPDANLDPN2 ---
Anes-Prog Note L&D Date/Time: 04/13/23 07:41 Comfortable throughout: section Neuraxial method: spinal Epidural/Spinal procedure site: clean & non-tender Neuro status: Neuro function grossly intact. Cardiovascular status: normal Respiratory status: normal Airway patency: baseline Mental status: baseline Post-Op hydration status: normal Vital Signs: Last Vital Signs Temp 36.8 C 04/13/23 04:44 Pulse 73 04/13/23 04:44 Resp 17 04/13/23 04:44 BP 121/78 04/13/23 04:44 Pulse Ox 96 04/13/23 04:44 O2 Del Method Room Air 04/12/23 19:00 Pain score (VAS): 2/10 I/O: Intake & Output 04/12/23 04/12/23 04/13/23 15:59 23:59 07:59 Intake Total 480 2500 Output Total 273 1500 Balance 207 1000 Post-procedural complaints: none Patient feedback: Patient satisfied with anesthetic care.
--- NOTE | 2023-04-13 07:42 | WPDANLDNPN2 ---
Anes-Prog Note L&D-Neuraxial Date/Time: 04/13/23 07:42 Neuraxial medications: intrathecal PF morphine Opiod-related complaints: none Patient feedback: Patient satisfied with post-operative pain management.
[2023-04-13] MEDS: DOCUSATE SODIUM 100 MG CAPSULE PO ×2 (07:55→17:31)
[2023-04-13] MEDS: MULTIVIT/MIN/PREN/FOL AC/IRON TABLET 1 TAB PO (07:57)
[2023-04-13 08:20] VITALS: BP 120/68; PULSE 75; RESP 16; TEMP 37.1; O2SAT 99
[2023-04-13] MEDS: HYDROcodone/acetaminophen (*CRX) 5-325 MG TABLET 1 TAB PO ×2 (12:36→13:58)
[2023-04-13] MEDS: SIMETHICONE 80 MG TAB.CHEW PO (12:36)
--- NOTE | 2023-04-13 14:06 | PC.NURSE ---
Discharge video link not working patient has been given the mother/baby guide for home reference.
[2023-04-13 20:36] VITALS: BP 148/98; PULSE 79; RESP 18; TEMP 37.1; O2SAT 97
[2023-04-14] MEDS: HYDROcodone/acetaminophen (*CRX) 5-325 MG TABLET 1 TAB PO ×2 (05:03→08:03)
--- NOTE | 2023-04-14 07:18 | PM.OBPNVD ---
OB - PN: Subj Subjective Date/time seen: 04/14/23 07:18 Patient comments: no complaints and pain well controlled baby status: doing well and nursing well OB - PN: Obj Data Labs 04/13/23 03:58 OB - PN A/P Plan day: 2 Plan: routine care, discharge home and follow up 6 weeks (4) Time Spent With Patient Time: Total time spent is greater than 50% in coordination of care (as documented) at patient's floor/unit and/or counseling patient: Time with patient: less than 15 minutes Exam Const: General: cooperative, healthy appearing and comfortable Orientation/consciousness: oriented to person, oriented to place and oriented to time HENMT: Head: normal to inspection Chest: Chest palpation & inspection: normal inspection of the chest Resp: Effort & Inspection: normal respiratory effort Cardio: Rate: regular rate Rhythm: regular rhythm Heart sounds: S1 normal heart sound present and S2 normal heart sound present GI: Inspection: normal to inspection and incision (cdi)
[2023-04-14 07:40] VITALS: BP 126/86; PULSE 70; RESP 18; TEMP 36.8; O2SAT 100
[2023-04-14] MEDS: IBUPROFEN 600 MG TABLET PO (07:54)
[2023-04-14] MEDS: MULTIVIT/MIN/PREN/FOL AC/IRON TABLET 1 TAB PO (07:54)
[2023-04-14] MEDS: DOCUSATE SODIUM 100 MG CAPSULE PO (07:58)
--- NOTE | 2023-04-14 08:30 | PC.NURSE ---
PT introductions made and plan of care discussed per post op c section, pain management, bottle feeding, daily care activities and pending discharge to home. PT and spouse both recipients of such instructions and no barriers to learning identified at this time. PT received such instructions this shift via one to one discussion, mom baby care guide and demonstrations. PT verbalized understanding of such care.
[2023-04-14] MEDS: HYDROcodone/acetaminophen (*CRX) 10-325 MG TABLET 1 TAB PO (12:50)
[2023-04-16 11:18] VITALS: BP 132/77; PULSE 66; RESP 18; TEMP 36.6; O2SAT 100
== END 2023-04-14 13:10 | disposition home or self-care (01) | DRG 785 ==
LOC: ANHLDR 06:42 → ANHOB2 11:11
PROVIDERS: Admitting Provider Obstetrics & Gynecology; PCP Internal Medicine; Referring Provider Obstetrics & Gynecology; Visit Provider Obstetrics & Gynecology
PROC: 10D00Z1 Extraction of Products of Conception, Low, Open Approach (ICD-10-PCS; CPT 59514; principal; 2023-04-12 07:30)
DX: O34.211 Maternal care for low transverse scar from previous cesarean delivery (principal); Z37.0 Single live birth; Z3A.39 39 weeks gestation of pregnancy; Z30.2 Encounter for sterilization
CPT/HCPCS: 36415; 85025; 88302; A9270; J0690; J1885; J2274; J2590; J7120

== ENCOUNTER 2024-05-22 12:27 | Outpatient (CLI) | payer BC, SELFPAY ==
--- NOTE | 2024-05-22 12:44 | ECG_ITS ---
Test Date: 2024-05-22 12:58:59 Measurements Intervals [place] Rate: 70 P: 9 MO: 131 QRS: -17 QRSD: 96 T: 73 QT: 379 QTc: 410 Interpretive Statements SINUS RHYTHM WITH MARKED SINUS ARRHYTHMIA POSSIBLE RIGHT VENTRICULAR CONDUCTION DELAY [RSR (QR) IN V1/V2] MODERATE VOLTAGE CRITERIA FOR LVH, CONSIDER NORMAL VARIANT [MEETS CRITERIA IN ONE OF: R(aVL), S(V1), R(V5), R(V5/V6)+S(V1)] NONSPECIFIC T-WAVE ABNORMALITY No previous ECG available for comparison Electronically Signed On 05-22-2024 13:31:57 CDT by Elvin Nicholas M.D.
[2024-05-22 13:16] LABS: Hematocrit 41.9 % (37.0-47.0); Hemoglobin 14.3 g/dL (12.0-15.0)
== END 2024-05-22 12:28 | disposition home or self-care (01) ==
PROVIDERS: Anesthesiology; PCP Internal Medicine; Visit Provider Obstetrics & Gynecology
DX: N94.10 Unspecified dyspareunia (principal); E78.00 Pure hypercholesterolemia, unspecified; D64.9 Anemia, unspecified
CPT/HCPCS: 36415; 85014; 85018; 86850; 86900; 86901; 93005

== ENCOUNTER 2024-05-26 03:02 | Day surgery (SDC) | payer BC, SELFPAY ==
[2024-03-24 14:27] VITALS: BMI 32.4
--- NOTE | 2024-03-24 14:41 | PC.NURSE ---
Report to the Outpatient Waiting Room, entrance under the green pavilion located off [facility], at 0600 on 03/31/24. Planned Procedure Time: 0730.? Time changes happen often and if your time is changed the preop area will call you the afternoon before. - You and your visitor will be asked to self-screen and do not enter if you have any COVID symptoms. Please call surgeon if you need to reschedule. - A mask is optional within the hospital at this time. Patients may have clear liquids (water, carbonated beverages, clear teas, apple juice) until 3 hours prior to surgery with a maximum of 20 ounces. - No food from midnight until time of surgery and no smoking. Take only the following medications with a SIP of water on the morning of surgery: Adderall DO NOT STOP ANY OF YOUR OTHER PRESCRIPTION MEDICATIONS PRIOR TO SURGERY EXCEPT THE FOLLOWING Medications to discontinue per physician N/A Date to take last dose n/a Please no make-up, nail moroccan, hairspray, perfume, deodorant, or body powder the day of surgery.? No jewelry (including any body piercings) or valuables the day of surgery, leave them at home.? Please take a shower or bath the night before, or the morning of, surgery with an antibacterial soap.? Wear comfortable, loose fitting clothing.? - Jewelry must be removed prior to entering the operating room.? Rings and piercings that are not removed may be cut off. - The hospital will not accept responsibility for valuables.? - Please leave all valuables, including medications, at home the day of surgery. If you are going home after surgery, a licensed class b driver must drive you home.? - NO public transportation without another adult if you receive anesthesia. - We recommend that an adult stay with you for 24 hours following discharge. - We also recommend that you do not drive, make important decision, drink alcoholic beverages, or take any drugs that were not prescribed by your health care provider for at least 24 hours after your discharge time. Follow any additional instructions given to you from your surgeon. Telephone instructions given to patient and asked if any additional questions and then verbalized understanding. Patient advised to call surgeon office or pre surgery nurse liaison [phone] if any additional questions.
[2024-05-18 08:28] VITALS: BMI 30.7
--- NOTE | 2024-05-18 08:44 | SUR.PREOP ---
Report to the Outpatient Waiting Room, entrance under the green pavilion located off [facility], at time 0600 on date 05-26-24. Planned Procedure Time: 0730.? Time changes happen often and if your time is changed the preop area will call you the afternoon before. - You and your visitor will be asked to self-screen and do not enter if you have any COVID symptoms. Please call surgeon if you need to reschedule. - A mask is optional within the hospital at this time. Patients may have clear liquids (water, carbonated beverages, clear teas, apple juice) until 3 hours prior to surgery with a maximum of 20 ounces. - No food from midnight until time of surgery and no smoking - Infants may have breast milk until 4 hours before surgery, infant formula 6 hours prior to surgery. - Children will be allowed to drink immediately following surgery.? If applicable, please bring a bottle or sippy cup to assist with drinking. Juice, water, soda, and popsicles are readily available.? For infants on formula, please bring formula the day of surgery.? Pacifiers are allowed. Take only the following medications with a SIP of water on the morning of surgery: N/A DO NOT STOP ANY OF YOUR OTHER PRESCRIPTION MEDICATIONS PRIOR TO SURGERY EXCEPT THE FOLLOWING Medications to discontinue per physician N/A Date to take last dose N/A Please no make-up, nail italian, hairspray, perfume, deodorant, or body powder the day of surgery.? No jewelry (including any body piercings) or valuables the day of surgery, leave them at home.? Please take a shower or bath the night before, or the morning of, surgery with an antibacterial soap.? Wear comfortable, loose fitting clothing.? Children are encouraged to wear pajamas. - Jewelry must be removed prior to entering the operating room.? Rings and piercings that are not removed may be cut off. - The hospital will not accept responsibility for valuables.? - Please leave all valuables, including medications, at home the day of surgery. If you are going home after surgery, a licensed laundry route driver must drive you home.? - NO public transportation without another adult if you receive anesthesia. - We recommend that an adult stay with you for 24 hours following discharge. - We also recommend that you do not drive, make important decision, drink alcoholic beverages, or take any drugs that were not prescribed by your health care provider for at least 24 hours after your discharge time. For Pediatric surgeries, we recommend two adults accompany the child home. Follow any additional instructions given to you from your surgeon. Telephone instructions given to LEYLA HOPE and asked if any additional questions and then verbalized understanding. Patient advised to call surgeon office or pre surgery nurse liaison [phone] if any additional questions.
--- NOTE | 2024-05-24 06:58 | PM.IMHP ---
H&P: HPI History of Present Illness Date/Time: 05/24/24 06:58 Chief Complaint: Pelvic pain and dyspareunia Narrative: 33 year 0 for diagnostic laparoscopy secondary to pain discomfort and dyspareunia. She has urologist did 6 weeks of pelvic floor therapy which did not help. There is a strong history endometriosis. She will undergo diagnostic laparoscopy. Risks and benefits reviewed including exclusive , aspiration bleeding injury to bowel, bladder, ureters, internal organs with need for open laparotomy. She received the [employer] handout entitled laparoscopy. She had questions answered. She asked to proceed. [facility] Past Medical History Medical History Morbid obesity Family History Family History Father Mother High cholesterol Colostomy in place Colonic disorder Social History Social History Years smoked: 3 Smoking status: Former smoker Tobacco type: e-cigarettes/vaping Second hand tobacco smoke exposure: Yes Additional smoking assessment comments: PT USES VAPE DAILY FOR LAST 3 YEARS 05/18/24 Alcohol intake: current Alcohol use details: 2x/week Substance use: current Substance use type: marijuana Other substance usage details: nightly Last use: 08/29/22 Lack of Transportation: No Lack of Food: Never True Current Housing: I Have Housing Concerned About Future Housing: No Difficulty Paying Gas/Electric Bills: No Difficulty Paying for Meds: No Currently Unemployed: No Education: Bachelor's Degree Difficulty w/ Childcare or Family Care: No Living arrangements: with family Spiritual care concerns: No Meds Home Medications and Allergies Home Medications Medication Instructions Recorded Confirmed Type dextroamphetamine-amphetamine ER 10 mg PO DAILY 03/24/24 05/18/24 History 10 mg 24hr capsule,extend release polysaccharide iron complex 150 mg 150 mg PO DAILY 03/24/24 05/18/24 History iron capsule rosuvastatin 10 mg tablet 10 mg PO DAILY 03/24/24 05/18/24 History Allergies Allergy/AdvReac Type Severity Reaction Status Date / Time No Known Allergies Allergy Verified 05/18/24 09:19 Exam Const: General: cooperative, healthy appearing, comfortable and average body habitus Nutritional Appearance: average body habitus Orientation/consciousness: oriented to person, oriented to place and oriented to time HENMT: Head: normal to inspection Resp: Effort & Inspection: normal respiratory effort Cardio: Rate: regular rate Rhythm: regular rhythm Heart sounds: S1 normal heart sound present and S2 normal heart sound present GI: Inspection: normal to inspection : External Female Exam: normal external appearance Speculum Exam - Vagina: normal appearance of the vagina Speculum Exam - Cervix: normal appearance of the cervix Bimanual exam- vagina & uterus: uterine shape normal and Uterine tenderness Bimanual Exam- Adnexa, other: tender bilaterally Assessment and Plan Assessment and plan (1) Pelvic pain: Code(s): R10.2 - Pelvic and perineal pain Status: Acute (2) Dyspareunia: Status: Acute Assessment and Plan: Proceed with diagnostic laparoscopy
[2024-05-26] VITALS (7 sets, daily range): BP systolic 114–140; BP diastolic 63–86; PULSE 50–64; RESP 12–20; TEMP 36.3–36.7; O2SAT 98–100
[2024-05-26] MEDS: ACETAMINOPHEN 500 MG TABLET 1000 MG PO (06:23)
[2024-05-26] MEDS: KETOROLAC 15 MG/ML VIAL (*BKC) IV PUSH (06:40)
[2024-05-26] MEDS: LACTATED RINGERS 1,000 ML 30 ML IV CONT (06:40)
--- NOTE | 2024-05-26 06:44 | WPDHPUPDATE1 ---
History and Physical Update Update Date/Time: 05/26/24 06:44 History and Physical has been reviewed, including an updated exam of the patient. There are NO changes in the patient's condition. Risks, benefits, and alternatives have been discussed and questions answered. Patient agrees to proceed with procedure.
--- NOTE | 2024-05-26 06:56 | WPDANESEPPF ---
Anes - Initial Pre Proc Eval Procedure: Operation Date: 05/26/24 07:30 Proposed Procedures p Diagnostic Laparoscopy - Prashanth Paz MD Date/Time: 05/26/24 06:56 Surgeon: Prashanth Paz MD Pre Op Diagnosis: Pelvic Pain, Dyspareunia, dysmenorrhea Patient Data Age: 34 Gender: F Height: 1.7 m Weight: 88.9 kg Allergies Allergy/AdvReac Type Severity Reaction Status Date / Time No Known Allergies Allergy Verified 05/18/24 09:19 Home Medications Medication Instructions Recorded Confirmed Type dextroamphetamine-amphetamine ER 10 mg PO DAILY 03/24/24 05/26/24 History 10 mg 24hr capsule,extend release polysaccharide iron complex 150 mg 150 mg PO DAILY 03/24/24 05/26/24 History iron capsule rosuvastatin 10 mg tablet 10 mg PO DAILY 03/24/24 05/26/24 History hydrocodone 5 mg-acetaminophen 300 1 tablet PO Q4H PRN pain #20 tabs 05/26/24 Rx mg tablet Patient hx anesthesia problems: none Family hx anesthesia problems: none Results Review: All pre-operative results and documents have been reviewed as part of the pre-operative evaluation. [facility] Past Medical History Medical History (Updated 05/26/24 @ 06:56 by Prashanth Chin MD) Dyspareunia Pelvic pain Surgical History Surgical History (Updated 05/26/24 @ 06:56 by Prashanth Chin MD) Previous section Family History Family History Father Mother High cholesterol Colostomy in place Colonic disorder Social History Social History Years smoked: 3 Smoking status: Former smoker Tobacco type: e-cigarettes/vaping Second hand tobacco smoke exposure: Yes Additional smoking assessment comments: PT USES VAPE DAILY FOR LAST 3 YEARS 05/18/24 Alcohol intake: current Alcohol use details: 2x/week Substance use: current Substance use type: marijuana Other substance usage details: nightly Last use: 08/29/22 Lack of Transportation: No Lack of Food: Never True Current Housing: I Have Housing Concerned About Future Housing: No Difficulty Paying Gas/Electric Bills: No Difficulty Paying for Meds: No Currently Unemployed: No Education: Bachelor's Degree Difficulty w/ Childcare or Family Care: No Living arrangements: with family Spiritual care concerns: No Anes - Eval Final PreProcedure Day of Procedure 05/26/24 06:56 Patient weight: obese Heart: regular rate and rhythm Lungs: clear to auscultation Airway: Mallampati scale class 1 Neurological: alert and oriented Last oral intake: >/= 8 hours ASA classification: II Emergent: no Anesthetic plan: proceed Anesthesia type and monitoring: general ETT and standard monitoring Results Review: All pre-operative results and documents have been reviewed as part of the pre-operative evaluation. Informed Consent: The patient's anesthetic plan and its attendant risks and benefits were discussed with the patient/family/POA. Questions were solicited and answers provided to the satisfaction of the patient/family/POA.
[2024-05-26 07:03] LABS: BEDSIDEPREGUCG Negative (Negative)
[2024-05-26 07:04] LABS: BEDSIDEPREGUCG Negative (Negative)
--- NOTE | 2024-05-26 08:01 | P.OP_ITS ---
Procedure Note - Detailed Date of Procedure 05/26/24 Pre-op Diagnosis Pelvic Pain, Dyspareunia, dysmenorrhea Post-op Diagnosis Other (Pelvic pain/adhesions) Procedure Performed laparoscopic lysis adhesions Surgeon Prashanth Paz MD Anesthesia General Indications this is 34 year severe pelvic pain 3 previous sections tubal Findings tubes status post tubal ligation. Multiple adhesions were seen anteriorly omentum to the anterior wall. Normal-appearing ovaries. Uterus was large and bulbous. Ant appearing ovaries bilaterally. Normal-appearing appendix. Normal-appearing gallbladder and liver edge. Description of Procedure Patient was prepped draped in sterile placed in dorsal position. Excellent trach anesthesia weighted speculum placed in posterior fornix vagina. Anterior lip of cervix grasped with single-tooth. Allen's cannula was inserted the cervix. These were attached to each other to be used later for uterine manipulation. Bladder emptied of clear urine the weighted speculum was. The gloves were changed. A supraumbilical incision made the Veress needle passed in the abdomen. Abdomen filled with CO2 gas to 15. The 5 trocar advanced under direct visualization w ith scope. No injury seen patient placed in Trendelenburg and a left lateral quadrant incision made 2 to multiple adhesions anteriorly. Using sharp dissection cautery was brought down until this could be the pelvis was clear. The ovaries appeared within limits. The appendix liver gallbladder all appeared within as well. Irrigation undertaken until clear. The lower site removed. The gas removed from the abdomen. The upper site removed the incisions closed with 4 Monocryl glue. Patient was awakened went recovery in satisfactory condition. All sponge, needle, instrument counts were correct. There were no immediate complications noted Estimated Blood Loss 5 Drains No Packing No Pathology None sent Complications No immediate complications Condition Stable Disposition PACU
--- NOTE | 2024-05-26 09:46 | SUR.PHASEII ---
Patient's vitals are stable. She is unhooked from the monitors and just waiting for her ride.
== END 2024-05-26 09:58 | disposition home or self-care (01) ==
PROVIDERS: PCP Internal Medicine; Visit Provider Obstetrics & Gynecology
PROC: (CPT 49320; principal; 2024-05-26 07:30)
DX: N73.6 Female pelvic peritoneal adhesions (postinfective) (principal); F17.290 Nicotine dependence, other tobacco product, uncomplicated; F12.90 Cannabis use, unspecified, uncomplicated; E66.9 Obesity, unspecified; Z68.30 Body mass index [BMI] 30.0-30.9, adult; Z79.891 Long term (current) use of opiate analgesic; Z98.890 Other specified postprocedural states; Z98.51 Tubal ligation status
CPT/HCPCS: 58660; A9270; J1100; J1885; J2003; J2250; J2405; J2704; J3010; J7120

== ENCOUNTER 2024-07-04 15:37 | Outpatient (CLI) | payer BC, SELFPAY ==
--- NOTE | ~2024-07-04 | MR_ITS ---
MRI of the pelvis CLINICAL HISTORY: Pelvic pain TECHNIQUE: Coronal SSFSE ARC, WATER:coronal LAVA-FLEX, Coronal 2D FIESTA FatSat, Axial SSFSE BH ARC, Axial 3D DualEcho BH, Axial SSFSE-IR, Axial DWI b=500, Axial 2D FIESTA FatSat, pre and dynamic postco ntrast Axial LAVA ARC, postcontrast Coronal In and Opposed phase LAVA FLEX. Following intravenous adm inistration of 18 cc MultiHance gadolinium, T1-weighted fat-sat imaging was performed in the axial an d coronal planes. Findings: Uterus is anteverted with probable section scar. There is mild diffuse thickening of the junctional zone, which can be seen in setting of adenomyosis. No definite focal uterine mass e vident. Cervical nabothian cysts noted. Both ovaries demonstrate small follicular cysts. Urinary bladder unremarkable. No pelvic ascites seen. No pelvic lymphadenopathy identified. Visualized bowel loops are unremarkable. Visualized musculature unremarkable. Visualized osseous stru ctures are intact. IMPRESSION: Extensive amorphous thickening of the junctional zone can be seen in setting of adenomyosis. section scar probably present. Reviewed, dictated and finalized at [facility]. 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
== END 2024-07-04 15:38 | disposition home or self-care (01) ==
PROVIDERS: PCP Internal Medicine; Visit Provider Obstetrics & Gynecology
DX: N80.03 Adenomyosis of the uterus (principal); R10.2 Pelvic and perineal pain
CPT/HCPCS: 72197; A9577

== ENCOUNTER 2024-08-25 01:15 | Day surgery (SDC) | payer BC, SELFPAY ==
[2024-08-14 16:11] VITALS: BMI 29.4
--- NOTE | 2024-08-14 16:15 | SUR.PREOP ---
Report to the Outpatient Waiting Room, entrance under the green pavilion located off [facility], at time 0600 on date 08/25/24. Planned Procedure Time: 0730.? Time changes happen often and if your time is changed the preop area will call you the afternoon before. - You and your visitor will be asked to self-screen and do not enter if you have any COVID symptoms. Please call surgeon if you need to reschedule. - A mask is optional within the hospital at this time. Patients may have clear liquids (water, carbonated beverages, clear teas, apple juice) until 3 hours prior to surgery with a maximum of 20 ounces. - No food from midnight until time of surgery and no smoking. This includes no chewing gum, candy or mints. - Infants may have breast milk until 4 hours before surgery, infant formula 6 hours prior to surgery. - Children will be allowed to drink immediately following surgery.? If applicable, please bring a bottle or sippy cup to assist with drinking. Juice, water, soda, and popsicles are readily available.? For infants on formula, please bring formula the day of surgery.? Pacifiers are allowed. Take only the following medications with a SIP of water on the morning of surgery: hold [facility] meds DO NOT STOP ANY OF YOUR OTHER PRESCRIPTION MEDICATIONS PRIOR TO SURGERY EXCEPT THE FOLLOWING Medications to discontinue per physician n/a Date to take last dose Please no make-up, nail azeri, hairspray, perfume, deodorant, or body powder the day of surgery.? No jewelry (including any body piercings) or valuables the day of surgery, leave them at home.? Please take a shower or bath the night before, or the morning of, surgery with an antibacterial soap.? Wear comfortable, loose fitting clothing.? Children are encouraged to wear pajamas. - Jewelry must be removed prior to entering the operating room.? Rings and piercings that are not removed may be cut off. - The hospital will not accept responsibility for valuables.? - Please leave all valuables, including medications, at home the day of surgery. If you are going home after surgery, a licensed recycle driver must drive you home.? - NO public transportation without another adult if you receive anesthesia. - We recommend that an adult stay with you for 24 hours following discharge. - We also recommend that you do not drive, make important decision, drink alcoholic beverages, or take any drugs that were not prescribed by your health care provider for at least 24 hours after your discharge time. For Pediatric surgeries, we recommend two adults accompany the child home. Follow any additional instructions given to you from your surgeon. Telephone instructions given to __patient__and asked if any additional questions and then verbalized understanding. Patient advised to call surgeon office or pre surgery nurse liaison [phone] if any additional questions.
--- NOTE | 2024-08-22 07:13 | PM.IMHP ---
H&P: HPI History of Present Illness Date/Time: 08/22/24 07:13 Chief Complaint: Pelvic pain dyspareunia and dysmenorrhea Narrative: 34-year-old female admitted for hysterectomy and bilateral salpingectomy. She has what is suspected to be adenomyosis. And she has had the no success with Canasa trocar releasing hormone antagonist. She understands this will make her permanently infertile. Risks and benefits reviewed including but not exclusive of , aspiration pneumonia, bleeding, transfusion, perforation injury to bowel, bladder, ureters, or other internal organs with need for open laparotomy. She received the ACOG handout entitled hysterectomy as well as the de Eusebio handout. She had all questions answered. She asked to proceed Review of Systems Review of Systems: All systems reviewed & are unremarkable except as noted in HPI and below PMFSH Past Medical History Medical History Dyspareunia Pelvic pain Surgical History Surgical History Previous section Family History Family History Father Mother High cholesterol Colostomy in place Colonic disorder Social History Social History Years smoked: 1 Smoking status: Current every day smoker Tobacco type: e-cigarettes/vaping Second hand tobacco smoke exposure: Yes Additional smoking assessment comments: PT USES VAPE DAILY FOR LAST 3 YEARS 05/18/24 Alcohol intake: current Alcohol use details: 2x/week Substance use: current Substance use type: marijuana Other substance usage details: nightly Last use: 08/29/22 Lack of Transportation: No Lack of Food: Never True Current Housing: I Have Housing Concerned About Future Housing: No Difficulty Paying Gas/Electric Bills: No Difficulty Paying for Meds: No Currently Unemployed: No Education: Bachelor's Degree Difficulty w/ Childcare or Family Care: No Living arrangements: with family Spiritual care concerns: No Meds Home Medications and Allergies Home Medications ?Medication ?Instructions ?Recorded ?Confirmed ?Type dextroamphetamine-amphetamine ER 10 mg PO DAILY 03/24/24 08/14/24 History 10 mg 24hr capsule,extend release polysaccharide iron complex 150 mg 150 mg PO DAILY 03/24/24 08/14/24 History iron capsule rosuvastatin 10 mg tablet 10 mg PO DAILY 03/24/24 08/14/24 History Allergies Allergy/AdvReac Type Severity Reaction Status Date / Time No Known Allergies Allergy Verified 08/14/24 16:18 Exam Const: General: cooperative, healthy appearing and comfortable Nutritional Appearance: average body habitus Orientation/consciousness: oriented to person, oriented to place and oriented to time HENMT: Head: normal to inspection Resp: Effort & Inspection: normal respiratory effort Cardio: Rate: regular rate Rhythm: regular rhythm Heart sounds: S1 normal heart sound present and S2 normal heart sound present GI: Inspection: normal to inspection : External Female Exam: normal external appearance Speculum Exam - Vagina: normal appearance of the vagina Speculum Exam - Cervix: normal appearance of the cervix Bimanual exam- vagina & uterus: enlarged and Uterine tenderness Bimanual Exam- Adnexa, other: normal adnexae Assessment and Plan Assessment and plan (1) Enlarged uterus: Code(s): N85.2 - Hypertrophy of uterus Status: Acute (2) Dysmenorrhea: Code(s): N94.6 - Dysmenorrhea, unspecified Status: Acute Plan Proceed with robotic total vaginal hysterectomy and bilateral salpingectomy
[2024-08-25] VITALS (12 sets, daily range): BP systolic 103–135; BP diastolic 59–82; PULSE 46–58; RESP 10–20; TEMP 36.4–37.3; O2SAT 94–100; BMI 29.2
--- OUTSIDE RECORDS SUMMARY | 2024-08-25 01:19 | XMS_ITS | Clinical Summary ---
Author Organization [facility] Address [address] [place] [address]. [place], [place] [id number] [place] [id number] Care Team Providers Care Plumber And Tinner Name Role Phone AdamJeremi hugo Primary Care Provider [phone] Allergies No known active allergies Medications phentermine 37.5 MG tabletIndication s:Class 3 severe obesity due to excess calories without serious comorbidity with body mass index (BMI) of 40.0 to 44.9 in adult ([facility]) Take 1 tablet (37.5 mg total) by mouth every morning before breakfast. 30 tablet 5 01/07/2022 Active Active Problems Problem Noted Date Diagnosed Date Anxiety 11/21/2019 Immunizations Name Administration Dates Next Due Tdap (Adacel) 07/09/2021 Family History Medical History Relation Comments Heart Disease Father Hypertension Father Cancer Maternal Aunt breast Cancer Maternal Grandfather Arthritis Maternal Grandmother Cancer Maternal Grandmother Diabetes Maternal Grandmother Vision loss Mother Relation Status Comments Father Maternal Aunt Maternal Grandfather Maternal Grandmother Mother Alive Social History Tobacco Use Types Packs/Day Years Used Date Smoking Tobacco: Never Smokeless Tobacco: Never Tobacco Cessation:Counseling Given: No Alcohol Use Standard Drinks/Week Comments Yes 0 (1 standard drink = 0.6 oz pur e alcohol) PHQ-2 Answer Date Recorded PHQ-2 Score - If the patient scores above 3, please move on to questions 3-9 3 03/23/2022 Comments No Sex and Gender Information Value Date Recorded Sex Assigned at Not on file 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 Gender Identity Not on file Sexual Orientation Not on file Last Filed Vital Signs Vital Sign Reading Time Taken Comments Blood Pressure 100/62 03/23/2022 7:06 AM CDT Pulse 84 03/23/2022 7:06 AM CDT Temperature 36.4 ??C (97.6 ??F) 03/23/2022 7:06 AM CD T Respiratory Rate 18 03/23/2022 7:06 AM CDT Oxygen Saturation 99% 03/23/2022 7:06 AM CDT Inhaled Oxygen Concentration - - Weight 109.4 kg (241 lb 3.2 oz) 03/23/2022 7:06 AM CDT Height 170.2 cm (5' 7 ) 03/23/2022 7:06 AM CDT Body Mass Index 37.78 03/23/2022 7:06 AM CDT Plan of Treatment Health Maintenance Due Date Last Done Comments Cervical Cancer Screening Pa p Smear (Age 30 to 64) Every 3 Years 1992 PHQ-2 (Physician [place]) 2004 Hepatitis C 01/15/2010 Hepatitis B Vaccines (1 of 3 - 19+ 3-dose series) 01/15/2011 Cervical Cancer Screening Pa p with HPV Testing (Age 30 to 64) Every 5 Years 01/15/2022 Cervical Cancer Screening wi th HPV 01/15/2022 Annual Physical 10/14/2022 10/14/2021 COVID-19 Vaccine (3 - 2023-2 5 season) 2024 05/16/2021, 04/21/2021 Influenza Adult (#1) 2024 PHQ-2 (Physician [facility]) 07/26/2024 DTaP, Tdap and Td Vaccines ( 2 - Td or Tdap) 07/09/2031 07/09/2021 HPV Vaccines Aged Out No longer eligi ble based on patient's age to complete this topic Meningococcal B Vaccine Aged Out No l onger eligible based on patient's age to complete this topic Meningococcal Vaccine Aged Out No canelo dontae eligible based on patient's age to complete this topic Pneumococcal Vaccine: Pediatrics (0 to 5 Years) and At-Risk Patients (6 to 64 Years) Aged Out No longer eligible b ased on patient's age to complete this topic RSV Immunizations Under 20 Months Aged Out No longer eligible b ased on patient's age to complete this topic [place] [address] Care Teams Plumber And Tinner Relationship Specialty Start Date End Date Jeremi Medina DO [address] [place] [address] PCP - General FAMILY PRACTICE 12/23/23
--- OUTSIDE RECORDS SUMMARY | 2024-08-25 01:19 | XMS_ITS | Encounter Summary ---
Author Organization [facility] Address [address] [place] [address]. [place], [place] [id number] [place] [id number] Care Team Providers Care Lead Care Manager Name Role Phone Joyce Moreno NP Primary Care Provider Jeremi Levine DO Primary Care Provider [phone] Encounter Details Date Type Department Care Team (Late st Contact Info) Description 07/10/2022 [employer] Authoria Message Enc [facility] Family Medicine - [address] [place] [address] [facility], [facility] Provider Phentermine refill Social History Tobacco Use Types Packs/Day Years Used Date Smoking Tobacco: Never Smokeless Tobacco: Never Alcohol Use Standard Drinks/Week Comments Yes 0 (1 standard drink = 0.6 oz pur e alcohol) PHQ-2 Answer Date Recorded PHQ-2 Score - If the patient scores above 3, please move on to questions 3-9 3 03/23/2022 Comments No Sex and Gender Information Value Date Recorded Sex Assigned at Not on file Legal Sex 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 STANT ADMINISTRATOR documented in this encounter Plan of Treatment Not on file documented as of this encounter Visit Diagnoses Not on filedocumented in this encounter Additional Health Concerns Assessment Noted Time PHQ-9 Depression Total Score: 17 022 7:22 AM CDT documented as of this encounter Care Teams Lead Care Manager Relationship Specialty Start Date End Date Joyce Moreno NP PCP - General NURSE PRACTITIONER 01/23/22 12/22/23 Jeremi Medina DO [address] [place] [address] PCP - General FAMILY PRACTICE 12/23/23 documented as of this encounter
--- OUTSIDE RECORDS SUMMARY | 2024-08-25 01:19 | XMS_ITS | Data Portability ---
Author Organization [place] - [facility] OFFICE Address [address] [place] [address] Care Team Providers Care Mini Bar Attendant Name Role Phone JENNIFER VELEZMICHELE Primary Care Provider Assessment Encounter Date Assessment Date Assessment LastModified by Organization Details LastModified Time 12/07/2023 12/07/2023 Patient Examined by GRICELDA Hartley, Also Documentation reviewed and approved by supervising physician [email or web address] Not available 12/07/2023 16:49:36 02/29/2024 02/29/2024 Patient Examined by GRICELDA Hartley, Also Documentation reviewed and approved by supervising physician dannie Not available 02/26/2024 11:06:44 Plan of Treatment Reminders Order Date Submit Date Provider Last Modified By Organization Details Last Modified Time Details Appointments ESTABLISH ED PATIENT DETAILED 2024 08:00A M Conrado Flores i, MD Not available Not available Not available Lab None recorded. Referral None recorded. Procedures None recorded. Surgeries None recorded. Imaging electroca rdiogram 2023 024 [email or web address] Not available 12/22/2023 10:16:33 Medication Orders rosuvasta tin 10 mg tablet 2023 024 [id number] [facility] [employer], [address] [place], [address], 12/07/2023 16:53:22 Patient TargetsNo targets recorded. Patient Instructions Encounter Date Encounter Id Patient Instructions Last Modified By Organization Details Last Modified Time 12/07/2023 [id number] Low cholesterol diet advised Low sodium diet advised. [email or web address] Not available 12/07/2023 16:53:19 Reason for Referral None Reported. Results Created Date Observation Date Name Description Value Unit Range Abnormal Flag Note LastModifiedBy Organization Detail LastModifiedTime 12/21/19 24 11/12/2023 erasmo bui am No observ ation record ed. [email or web address] Not Available 2023 15:02:28 12/30/19 24 12/16/2023 (BRIGIDO) ankle brach ial index * No observ ation record ed. [email or web address] Not Available 2023 11:10:57 01/11/20 24 12/21/2023 event monit or No observ ation record ed. [email or web address] Not Available 2023 11:12:04 02/19/20 24 02/16/2024 US, echoc ardio gram No observ ation record ed. [email or web address] Not Available 2023 10:34:18 03/02/20 24 02/22/2024 exerc isdanilo iglesias s echoc ardio gram No observ ation record ed. [email or web address] Not Available 2023 14:42:08 Result Notes None recorded. Problems Name Problem SNOMED Code Status Onset Date Resolution Date Notes Provider Name and Address Organization Details Recorded Time Body mass index 30+ - obesity 602492393 Active 2022 Marycarmen Cobos null, [place] - [facility] 4 15:03:46 History of human papilloma virus infection 7391038812591 02 Active 2022 Marycarmen Cobos [place], [place] - [facility] 4 15:03:46 Tattoo of skin 073764384512 Active 2022 Marycarmen Mesto [place], [place] - [facility] 4 15:03:46 Attention deficit hyperactivi ty disorder, predominant ly inattentive type 86521305 Active 2022 Marycarmen Mesto [place], [place] - [facility] 4 15:03:46 Family history of coronary arterioscle rosis 133834669 Active 2022 Marycarmen Mestania null, [place] - [facility] 4 15:03:46 Anxiety 89699608 Active 2022 Marycarmen Mesto null, [place] - [facility] 4 15:03:46 Palpitation s 14951835 Active 2023 Marycarmen garcia [facility] 4 15:03:46 Ex-smoker 5355962 Active 2022 Marycarmen garcia, [place] - [facility] 4 15:03:46 Notes:Some problems listed i n Document: #[id number] could not be added to this patient's chart. Please review this document and add these problems to the patient's chart manually as needed. Problem Notes None recorded. Procedures Surgical History None recorded. Imaging Results Imaging Date Name Status LastModified by Organization Details LastModified Time 11/12/2023 electrocardiogram completed [email or web address] Informa tion not available 12/23/2023 15:02:28 12/16/2023 (BRIGIDO) ankle brachial index* completed [email or web address] Information not available 02/26/2024 11:10:57 12/21/2023 event monitor completed [email or web address] Information not available 01/11/2024 11:12:04 02/16/2024 US, echocardiogram completed [email or web address] Inform ation not available 02/22/2024 10:34:18 02/22/2024 exercise stress echocardiogram completed [email or web address] Information not available 03/02/2024 14:42:08 Procedure Notes None recorded. Medical Equipment None Reported. Allergies No known drug allergies Medications Name Sig Start Date Stop Date Status Note LastModified by Organization Details LastModified Time fluconazole 100 mg tablet TAKE 1 TABLET BY MOUTH EVERY DAY active Not Available Not Available No t Available clindamycin HCl 300 mg capsule TAKE ONE CAPSULE BY MOUTH EVERY 8 HOURS UNTIL ALL TAKEN 08/13 completed Not Available Not Available Not Available hydrocodone 5 mg-acetamin ophen 325 mg tablet TAKE 1 TABLET BY MOUTH EVERY 4 HOURS NEEDED 07/30 completed Not Available Not Available Not Available fluocinonid e 0.05 % topical gel APPLY TO AFFECTED SORES TWICE DAILY UNTIL RESOLVED. active Not Available Not Available No t Available polysacchar chalino iron complex 150 mg iron capsule TAKE 1 CAPSULE BY MOUTH EVERY DAY FOR ANEMIA active Not Available Not Available No t Available dextroamphe tamine-amph etamine 10 mg tablet TAKE 1 TABLET EVERY DAY BY ORAL ROUTE IN THE MORNING. active Not Available Not Available No t Available phentermine 37.5 mg tablet 08/13 completed Not Available Not Available Not Available meloxicam 7.5 mg tablet Take 1 tablet every day by oral route. 12/06 completed Not Available Not Available Not Available triamcinolo ne acetonide 0.1 % dental paste TAKE 1 APPLICATI ON TWICE A DAY BY DENTAL ROUTE. active Not Available Not Available No t Available baclofen 10 mg tablet Take 1 tablet twice a day by oral route. 11/11 completed Not Available Not Available Not Available clotrimazol e-betametha sone 1 %-0.05 % topical cream PLEASE SEE ATTACHED FOR DETAILED DIRECTION S active Not Available Not Available No t Available dextroamphe tamine-amph etamine ER 10 mg 24hr capsule,ext end release TAKE 1 CAPSULE BY MOUTH EVERY DAY IN THE MORNING active Not Available Not Available No t Available sertraline 50 mg tablet TAKE 1 TABLET BY MOUTH EVERY DAY 08/13 completed Not Available Not Available Not Available metoclopram chalino 10 mg tablet TAKE 1 TABLET BY MOUTH FOUR TIMES DAILY 08/13 completed Not Available Not Available Not Available amoxicillin 875 mg-potassiu m clavulanate 125 mg tablet active Not Available Not Available Not Available rosuvastati n 10 mg tablet TAKE 1 TABLET BY MOUTH EVERY DAY active Not Available Not Available No t Available duloxetine 30 mg capsule,del ayed release Take 1 capsule every day by oral route. active Not Available Not Available No t Available iron 10 mg xr 1 per day 12/06 completed Not Available Not Available Not Available Cymbalta 600mg 1 per day 12/06 completed Not Available Not Available Not Available varenicline tartrate 0.5 mg (11)-1 mg (42) tablets in a dose pack TAKE DIRECTED active Not Available Not Available No t Available EluRyng 0.12 mg-0.015 mg/24 hr vaginal ring USE DIRECTED CONTINUOU SLY 08/13 completed Not Available Not Available Not Available Wegovy 0.25 mg/0.5 mL subcutaneou s pen injector 12/06 completed Not Available Not Available Not Available Vitals Date Recorded Body height Body mass index (BMI) Body weight Oxygen saturation Oxygen saturation in Arterial blood by Pulse oximetry Heart rate Systolic blood pressure Diastolic blood pressure Provider Name and Address Organization Details Last Updated DateTime 170.18 cm 34.4 kg/m2 47910.6 g 97 % 97 % 76 /min 130 mm[Hg] 92 mm[Hg] Roma Rogeluse [facility] 16:25:29 Date Recorded Body height Body mass index (BMI) Body weight Heart rate Respiratory rate Oxygen saturation Oxygen saturation in Arterial blood by Pulse oximetry Systolic blood pressure Diastolic blood pressure Provider Name and Address Organization Details Last Updated DateTime 170.18 cm 32.6 kg/m2 26783.2 1 g 82 /min 16 /min 98 % 98 % 132 mm[Hg] 70 mm[Hg] Caleb Roland [facility] 20:01:11 Social History Question Answer Notes LastModified by Organizat ion Details LastModified Time Tobacco Smoking Status Never Smoker Marycarmen garcia [facility] 12/05/2023 15:02:23 What Is Your Relationship Status? [email or web address] Information not available 12/05/2023 Sex: Unknown Functional Status None recorded. Mental Status None recorded. Family History Relationship Description Onset Age of this Age Resolved Age Notes LastModified by Organization Details LastModified Time Father Coronary arterioscler osis 38 [email or web address] Not available 2023 14:59:04 Notes:heart attack -father h igh chol -mother /sister Medical History Condition Response Hypertension N Depression Y High Cholesterol Y Gynecological HistoryNo gynecological history recorded. Obstetrics History GPAL:G 0 P 0 0 0 0 Immunizations Vaccine Type Date Status Note Provider Nam e and Address Organization Details Recorded Time Tdap 04/25/2021 completed Marycarmen garcia [facility] 12/05/2023 14:59:33 SARS-COV-2 (COVID-19) vaccine, UNSPECIFIED 05/16/2021 completed Marycarmen garcia [facility] 12/05/2023 14:59:57 Past Encounters Encounter ID Performer Location Encounter Start Date Encounter Closed Date Diagnosis/Indication Diagnosis SNOMED-CT Code Diagnosis ICD10 Code Diagnosis Note [id number] MANJIT HAHN [id number] [place] [address] 12/07/2023 15:50:49 12/07/2023 17:00:54 Atypical chest pain 647293540 R07.89 will do stress echo Dyspnea on exertion 6084 5006 R06.09 Obtain echo to evaluate for structural /functiona l disease. Palpitations 96643861 R0 0.2 will do heart monitor for one week Dyslipidemia 620961370 E 78.5 *Last LDL 150 done on 11/2023 was done on .Pt takes.will start crestor 10 mg daily [id number] Eboni Newton [place] OFFICE [facility] [place] [address] 02/29/2024 11:43:06 02/29/2024 12:22:07 Dyspnea on exertion 91711708 R06.09 Obtain echo to evaluate for structural /functiona l disease. Palpitations 11779773 R0 0.2 12/21/2023 -4 day event monitor: Unremarkab le event monitor. Dyslipidemia 130789565 E 78.5 *Last LDL 150 done on 11/2023 was done on .Pt takes.will start crestor 10 mg daily [id number] Conrado Rodgers MD [place] OFFICE [facility] [place] [address] 03/30/2024 19:23:14 03/30/2024 20:17:32 Dyspnea on exertion 01398379 R06.09 Obtain echo to evaluate for structural /functiona l disease. Palpitations 04628118 R0 0.2 will do heart monitor for one week Dyslipidemia 113725542 E 78.5 *Last LDL 150 done on 11/2023wil l start crestor 10 mg daily Health Concerns Section Related Observation LastModified by Organization Detai ls LastModified Time None Recorded Concern Status LastModified by Organization Details LastModified Time None Recorded Advance Directives Directive None Recorded Payers Encounter Date Sequence Insurance Name Policy Number Policy Rudd Covered Member ID Rudd Member ID Guarantor Name 12/07/2023 1 [place] [id number] Scottyava Billadnilo [id number] Dee Hise 02/29/2024 1 [place] [id number] Scottyava Billdanilo [id number] Dee Hise 03/30/2024 1 [place] [id number] Scotty Moy [id number] Dee Moy Notes Date Note Type Note Provider Name and Address Organization Details Recorded Time 12/07/2023 text/html 12/07/23CC: ches t pain and palpitationAiden TAM is a 38 years-old white Male with h/o depression , hypertension, dyslipidemia, anxiety, ADHD, strong family history of heart disease, former smoker currently vaping was referred for cardiac evaluation Today reports: occasional chest pain that is pressure like that last for few minutes. Denies shortness of breath at rest. Has mild dyspnea on exertion. She has occasional syncope with hot weather. *Last LDL 150 11/2023 was done on .Pt takes. No orthopnea. No PNDs.occasional heart palpitations.Denies dizziness. Denies syncope or near syncope.No ankle or leg edema.No major bleeding events.No reported side effects from medications. Taking medications as prescribed with no missed doses.Denies snoring, daytime somnolence and AM headache.*Last LDL 150 done on 11/2023 was done on .Pt takes. MANJIT garcia [place] - [facility] 12/07/2023 16:53:25 02/29/2024 text/html *stress echo08/0 01/16CC : Cardiac follow upAiden TAM is a 34 years-old white Male with h/o depression , hypertension, dyslipidemia, anxiety, ADHD, strong family history of heart disease, former smoker currently vaping was referred for 1 month cardiac follow up with ECHO, 4 day event monitor and Arterial doppler results She was last seen in the clinic on 12/07/23, since then she She denies ER visits and hospitalizations since she was last seen. Today reports: Denies chest pain. Denies shortness of breath at rest. Has mild dyspnea on exertion. No orthopnea. No PNDs. Denies heart palpitations. Denies dizziness. Denies syncope or near syncope. No ankle or leg edema. No major bleeding events. No reported side effects from medications. Taking medications as prescribed with no missed doses. Denies snoring, daytime somnolence and AM headache. *Last LDL was 159 done on 11/28/23.Pt takes rosuvastatin 10 mg. *Had ECHO on 02/16/24 showed LV chamber size is normal. The estimated left ventricle ejection fraction is 55-60% (normal). There is mild thickening of the mitral valve anterior leaflet. Sinus Bradycardia. *Had Unremarkable 4 day event monitor on 12/21/2023. *Had Arterial doppler on 12/16/23 showed Normal BRIGIDO. Previously:Has mild dyspnea on exertion. She has occasional syncope with hot weather. Eboni garcia, [facility] 03/28/2024 12:41:57 03/30/2024 text/html *heart geyvlcz49/05/24CC : Cardiac follow upAiden TAM is a 34 years-old white Male with h/o depression , hypertension, dyslipidemia, anxiety, ADHD, strong family history of heart disease, former smoker currently vaping is here for follow up. She was last seen in the clinic on 02/29/24, since then she *Had ECHO on 02/16/24 showed LV chamber size is normal. The estimated left ventricle ejection fraction is 55-60% (normal). There is mild thickening of the mitral valve anterior leaflet. Sinus Bradycardia.She denies ER visits and hospitalizations since she was last seen. Today reports:Denies chest pain.Denies shortness of breath at rest. Has mild dyspnea on exertion.No orthopnea. No PNDs.Denies heart palpitations.Denies dizziness. Denies syncope or near syncope.No ankle or leg edema.No major bleeding events.No reported side effects from medications. Taking medications as prescribed with no missed doses.Denies snoring, daytime somnolence and AM headache.*Last LDL was 159 done on 11/28/23.Pt takes rosuvastatin 10 mg. Previously:*Had ECHO on 02/16/24 showed LV chamber size is normal. The estimated left ventricle ejection fraction is 55-60% (normal). There is mild thickening of the mitral valve anterior leaflet. Sinus Bradycardia. *Had Unremarkable 4 day event monitor on 12/21/2023. *Had Arterial doppler on 12/16/23 showed Normal BRIGIDO. Has mild dyspnea on exertion. She has occasional syncope with hot weather. Conrado Rodgers MD [address] [place], [address], [facility] 03/30/2024 20:15:52 OBGyn Episode No OBEpisode recorded.
--- OUTSIDE RECORDS SUMMARY | 2024-08-25 01:20 | XMS_ITS | Clinical Summary ---
Author Organization [facility] Address [facility] [place] [address] Care Team Providers Care Podiatric Medicine Professor Name Role Phone Giselle Hinton MD Primary Care Provider [phone] Allergies No known active allergies Medications baclofen (LIORESAL) 10 mg tablet Take 1 tablet (10 mg total) by mouth 2 (two) times a day 08/13/2023 Active dextroamphetami ne-amphetamine XR (ADDERALL XR) 10 mg 24 hr capsule Take 1 capsule (10 mg total) by mouth every morning 07/30/2023 Active meloxicam (MOBIC) 7.5 mg tablet Take 1 tablet (7.5 mg total) by mouth daily 08/13/2023 Active phentermine (ADIPEX-P) 37.5 mg tablet Take 1 tablet (37.5 mg total) by mouth daily 01/07/2022 Active polysaccharide iron complex (NU-IRON) 150 mg iron capsule TAKE 1 CAPSULE BY MOUTH EVERY DAY FOR ANEMIA Active semaglutide (Wegovy) 0.25 mg/0.5 mL auto-injector Active rosuvastatin (CRESTOR) 10 mg tablet Take 1 tablet (10 mg total) by mouth daily 12/07/2023 Active dextroamphetami ne-amphetamine (ADDERALL) 10 mg tablet 1 tablet (10 mg total) Active Active Problems Problem Noted Date Diagnosed Date Other hyperlipidemia 12/20/2023 Abnormal level of hormones i n specimens from other organs, systems and tissues 12/20/2023 Other fatigue 12/20/2023 Other fatigue 12/20/2023 Paresthesia of skin 09/28/2023 Attention deficit hyperactiv ity disorder, predominantly inattentive type 04/23/2023 Obesity with body mass index 30 or greater 08/12 Anxiety 11/21/2019 Family History Medical History Relation Name Comments Heart attack Father Hyperlipidemia Mother Hyperlipidemia Sister Relation Name Status Comments Father Mother Sister Social History Tobacco Use Types Packs/Day Years Used Date Smoking Tobacco: Every Day Vaping Passive Smoke Exposure: Never Smokeless Tobacco: Never Tobacco Cessation:Ready to Q uit: Not Asked; Counseling Given: Not Answered Personal Safety Answer Date Recorded Getting School Help Needed Not on file 08/31 Comments Unknown Sex and Gender Information Value Date Recorded Sex Assigned at Not on file 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 Gender Identity Not on file Sexual Orientation Not on file Obstetrics History Last Filed Vital Signs Vital Sign Reading Time Taken Comments Blood Pressure 126/71 03/24/2024 3:36 PM CDT Pulse 71 03/24/2024 3:36 PM CDT Temperature 36.8 ??C (98.2 ??F) 03/24/2024 3:36 PM CD T Respiratory Rate - - Oxygen Saturation - - Inhaled Oxygen Concentration - - Weight 94.3 kg (207 lb 12.8 oz) 03/24/2024 3:36 PM CDT Height 170.2 cm (5' 7 ) 03/24/2024 3:36 PM CDT Body Mass Index 32.55 03/24/2024 3:36 PM CDT Plan of Treatment Health Maintenance Due Date Last Done Comments Cervical Cancer Screening 1992 Depression Screening 1992 Hepatitis C Screening 1992 Pneumococcal vaccine <65 (1 of 2 - PCV) 01/15/1998 Varicella Vaccines (1 of 2 - 13+ 2-dose series) 01/15/2005 Hepatitis B Screening 01/15/2010 Regular Well Visit/Exam 18-64 01/15/2010 Covid-19 Vaccine (3 - 2023-2 5 season) 2024 05/16/2021, 04/21/2021 Influenza Vaccine (#1) 2024 DTaP/Tdap/Td Vaccine (4 - Td or Tdap) 03/30/2033 03/30/2023, 07/09/2021, 04/25/2021 HPV Vaccines Aged Out No longer eligi ble based on patient's age to complete this topic Insurance [place] CHO[place]F [place] ACC[place] Care Teams Podiatric Medicine Professor Relationship Specialty Start Date End Date Giselle Hinton MD [address] [facility] [address] [place] [address] PCP - General Internal Medicine 08/31/23
--- OUTSIDE RECORDS SUMMARY | 2024-08-25 01:20 | XMS_ITS | Referral Summary ---
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 Gender Identity Not on file Sexual Orientation [...] 03/24/2024 3:36 PM CDT Plan of Treatment Not on file Insurance CHOICE PRF [place] [employer] [place] O[place] Member Subscriber Plan / Payer (Ef fective 2020-Present) Name:Dee Hope Relation to Subscriber:Spouse Name:Jared Hope Date of :1984 (Home) Address: [address] [place] [address] Payer ID:[id number] (NAIC) Type:BC ALLIANCE Address: [facility] [id number] Care Teams Metal Reclamation Kettle Tender Relationship Specialty Start Date End Date Giselle Hinton MD [address] [facility] [address] [place] [address] PCP - General Internal Medicine 08/31/23
--- OUTSIDE RECORDS SUMMARY | 2024-08-25 01:20 | XMS_ITS | Data Portability ---
Author Organization [facility], [employer] Address [address] [facility] [facility] [address] [place] [address] Care Team Providers Care Mash Grinder Name Role Phone GISELLE VELEZ Primary Care Provider Assessment Encounter Date Assessment Date Assessment LastModified by Organization Details LastModified Time 11/12/2023 11/12/2023 Patient presented for follow up. Studies ordered as below. Discussed plan with patient/careg iver, who expressed understanding . Follow up as noted below. Not available 11/12/2023 11:07:14 01/10/2024 01/10/2024 Patient presented for follow up. Studies ordered as below. Discussed plan with patient/careg iver, who expressed understanding . Follow up as noted below. Not available 01/10/2024 14:41:43 03/16/2024 03/16/2024 Patient presented for follow up. Studies ordered as below. Discussed plan with patient/careg iver, who expressed understanding . Follow up as noted below. Not available 03/16/2024 09:25:30 06/26/2024 06/26/2024 Patient presented for follow up. Studies ordered as below. Discussed plan with patient/careg iver, who expressed understanding . Follow up as noted below. Not available 06/26/2024 18:52:34 Plan of Treatment Reminders Order Date Submit Date Provider Last Modified By Organization Details Last Modified Time Details Appointments ESTABLISH ED PATIENT 15 2024 05:45P Loly Velez MD Not available Not available Not available Lab magnesium , QN, serum or plasma 2023 024 [facility], [address] [facility], [place], [address], 11/12/2023 11:53:19 TSH, serum or plasma 2023 024 [facility], [address] [facility], [place], [address], 11/12/2023 11:53:19 D-dimer, quant, plasma 2023 024 [facility], [address] [facility], [place], [address], 11/12/2023 11:53:19 cortisol, serum or plasma 2023 024 [facility], [address] [facility], [place], [address], 11/16/2023 01:51:57 lipid panel w/ direct LDL, serum 2023 024 [facility], [address] [facility], [place], [address], 11/12/2023 11:53:19 amylase + lipase, serum 2023 024 [facility], [address] [facility], [place], [address], 11/12/2023 11:53:20 urinalysi s, dipstick 2023 024 [facility], [facility], [address] [facility] [address], [place], [address], 11/12/2023 12:47:06 lipid panel w/ direct LDL, serum 2023 024 [facility], [address] [facility], [place], [address], 01/10/2024 17:20:35 CMP, serum or plasma 2023 024 [facility], [address], [place], [address], 03/16/2024 08:24:06 lipid panel w/ direct LDL, serum - 6 weeks from 03/16/242023 024 [facility], [address] [facility], [place], [address], 03/16/2024 10:23:12 CMP, serum or plasma - 6 weeks from 03/16/242023 024 [facility], [address] [facility], [place], [address], 05/17/2024 13:16:12 drug screen, urine 2023 024 [facility], [address] [place] [address], [place], [address], 06/26/2024 19:26:[address] referral 2023 024 LUAN Rothman MD, [address] [facility], [address], [place], [address], 03/28/2024 20:31:05 cardiolog ist referral 2023 024 [place] [address] Conrado Rodgers MD, [address] [place], [address], 11/12/2023 12:12:48 podiatris t referral [address] [facility], [address] [place] [address], [address], [place], [address], 03/16/2024 10:28:04 Procedures None recorded. Surgeries None recorded. Imaging electroca rdiogram 2023 024 [facility], [facility], [address] [facility] [address], [place], [address], 11/12/2023 12:45:05 US, echocardi ogram 2023 024 [facility], [address], [place], [address], 11/12/2023 14:02:04 US, abdomen, complete [address] [facility] [address], [address], [place], [address], 11/23/2023 14:50:51 CT, neck, soft tissue, w/ contrast [address] [facility] [address], [address], [place], [address], 02/03/2024 16:16:46 XR, hip + pelvis, bilateral - B/L [address] [facility] [facility] [address], [address], [place], [address], 05/18/2024 17:06:47 Medication Orders baclofen 10 mg tablet 2023 024 [id number], [address], [place], [id number], 11/12/2023 11:42:20 meloxicam 7.5 mg tablet 2023 024 [id number], [address], [place], [id number], 03/16/2024 10:12:48 duloxetin e 30 mg capsule,d elayed release 2023 024 [facility], [address], [place], [id number], 03/16/2024 10:12:12 triamcino lone acetonide 0.1 % dental paste 062023 [facility] [address], [address], 03/16/2024 10:13:34 clotrimaz ole-betam ethasone 1 %-0.05 % topical cream 2023 [facility] [facility] [address], [address], 03/16/2024 10:07:00 Diflucan 100 mg tablet 2023 [facility] [address], [address], 03/16/2024 10:12:26 rosuvasta tin 10 mg tablet 2023 [facility] [address], [address], 03/16/2024 10:22:46 varenicli ne tartrate 0.5 mg (11)-1 mg (42) tablets in a dose pack 2023 [facility] [facility] [address], [address], 03/16/2024 10:22:46 dextroamp hetamine- amphetami ne 10 mg tablet 2023 [facility] [facility] [address], [address], 03/16/2024 10:22:47 Patient TargetsNo targets recorded. Patient Instructions Encounter Date Encounter Id Patient Instructions Last Modified By Organization Details Last Modified Time 08/13/2023 [id number] back care and preventing injuries: care instructions mshenouda Not available 08/13/2023 12:06:39 getting back to normal after low back pain: care instructions mshenouda Not available 08/13/2023 12:06:38 learning about relief for back pain mshenouda Not available 08/13/2023 12:06:38 attention defici t hyperactivity disorder (ADHD) in adults: care instructions mshenouda Not available 08/13/2023 12:06:38 body mass index: care instructions mshenouda Not available 08/13/2023 12:06:39 learning about healthy weight mshenouda Not available 08/13/2023 12:06:39 11/12/2023 [id number] palpitations: care instructions mshenouda Not available 11/12/2023 11:52:55 (BRIGIDO) ankle brachial index* LUAN Not available 11/13/2023 14:10:54 body mass index: care instructions mshenouda Not available 11/12/2023 11:52:55 learning about healthy weight mshenouda Not available 11/12/2023 11:52:55 01/10/2024 [id number] canker sore: car e instructions mshenouda Not available 01/10/2024 15:07:44 vaginal yeast infection: care instructions mshenouda Not available 01/10/2024 15:07:44 body mass index: care instructions mshenouda Not available 01/10/2024 15:07:44 learning about healthy weight mshenouda Not available 01/10/2024 15:07:44 03/16/2024 [id number] smoking cessatio n counseling, greater than 3 minutes up to 10 minutes* ATHENAFAX Not available 03/16/2024 10:23:06 body mass index: care instructions mshenouda Not available 03/16/2024 10:22:43 learning about healthy weight mshenouda Not available 03/16/2024 10:22:43 06/26/2024 [id number] body mass index: care instructions mshenouda Not available 06/26/2024 19:26:04 learning about healthy weight mshenouda Not available 06/26/2024 19:26:04 Reason for Referral Neurologist Referral for Num bness of foot Referring Physician: Giselle Velez, Internal Medicine, Encounter Date: 08/13/2023 Family [employer] Consumer [employer] Professor Referral for Pa lpitations Referring Physician: iGselle Velez, Internal Medicine, Encounter Date: 11/12/2023 Procedure Manager Referral for Numb ness of foot Referring Physician: Giselle Velez, Internal Medicine, Encounter Date: 03/16/2024 Results Created Date Observation Date Name Description Value Unit Range Abnormal Flag Note LastModifiedBy Organization Detail LastModifiedTime 08/03/19 24 08/03/2023 HEMOG LOBIN A1C HGBA1C 5.1 % 4.0-6. 0 Not Available [facility] (Main Location) [facility] ,, [place], [address], 08/04/2023 13:11:45 08/03/19 24 08/03/2023 HEPAT ITIS C ANTIB VALERIE hepatitis C antibody NEGATI VE negati ve Not Available [facility]Main Location[facility] [address] ,, [place], [address], 08/04/2023 13:11:46 08/03/19 24 08/03/2023 CMP (COMP REHEN SIVE METAB OLIC PANEL ) glucose 92 mg/dL 74-99 Not Available [facility] (Main Location) [facility] ,, [place], [address], 08/04/2023 13:11:46 08/03/19 24 08/03/2023 CMP (COMP REHEN SIVE METAB OLIC PANEL ) urea nitrogen, blood (BUN) 10 mg/dL 6-20 Not Available [facility] (Main Location) [facility] ,, [place], [address], 08/04/2023 13:11:46 08/03/19 24 08/03/2023 CMP (COMP REHEN SIVE METAB OLIC PANEL ) total bilirubin 0.5 mg/dL 0.0-1. 2 Not Available [facility]Main Location[facility] [address] ,, [place], [address], 08/04/2023 13:11:46 08/03/19 24 08/03/2023 CMP (COMP REHEN SIVE METAB OLIC PANEL ) total protein 6.5 g/dL 6.6-8. 7 low Not Available [facility] (Main Location) [facility] [address] ,, [place], [address], 08/04/2023 13:11:46 08/03/19 24 08/03/2023 CMP (COMP REHEN SIVE METAB OLIC PANEL ) alanine aminotransfe rase (ALT) 30 U/L 0-33 Not Available [facility] (Main Location) [facility] [address] ,, [place], [address], 08/04/2023 13:11:46 08/03/19 24 08/03/2023 CMP (COMP REHEN SIVE METAB OLIC PANEL ) alkaline phosphatase 63 U/L 40-130 Not Available [facility] (Main Location) [facility] [address] ,, [place], [address], 08/04/2023 13:11:46 08/03/19 24 08/03/2023 CMP (COMP REHEN SIVE METAB OLIC PANEL ) aspartate aminotransfe rase (AST) 24 U/L 0-32 Not Available [facility] (Main Location) [facility] [address] ,, [place], [address], 08/04/2023 13:11:46 08/03/19 24 08/03/2023 CMP (COMP REHEN SIVE METAB OLIC PANEL ) calcium 8.8 mg/dL 8.6-10 .2 Not Available [facility] (Main Location) [facility] [address] ,, [place], [address], 08/04/2023 13:11:46 08/03/19 24 08/03/2023 CMP (COMP REHEN SIVE METAB OLIC PANEL ) albumin 4.0 g/dL 3.5-5. 2 Not Available [facility] (Main Location) [facility] [address] ,, [place], [address], 08/04/2023 13:11:46 08/03/19 24 08/03/2023 CMP (COMP REHEN SIVE METAB OLIC PANEL ) CO2 26 mmol/ L 22-29 Not Available [facility] (Main Location) [address] ,, [place], [address], 08/04/2023 13:11:46 08/03/19 24 08/03/2023 CMP (COMP REHEN SIVE METAB OLIC PANEL ) creatinine, serum 0.8 mg/dL 0.5-0. 9 Not Available [facility] (Main Location) [address] [place], [place] [address] ,, [place], [address], 08/04/2023 13:11:46 08/03/19 24 08/03/2023 CMP (COMP REHEN SIVE METAB OLIC PANEL ) sodium, serum 138 mmol/ L 136-14 5 Not Available [facility] (Main Location) [facility] [address] ,, [place], [address], 08/04/2023 13:11:46 08/03/19 24 08/03/2023 CMP (COMP REHEN SIVE METAB OLIC PANEL ) potassium, serum 4.0 mmol/ L 3.5-5. 1 Not Available [facility] (Main Location) [address] [place], [place] [address] ,, [place], [address], 08/04/2023 13:11:46 08/03/19 24 08/03/2023 CMP (COMP REHEN SIVE METAB OLIC PANEL ) chloride, serum 101 mmol/ L 98-107 Not Available [facility] (Main Location) [address] [place], [place] [address] ,, [place], [address], 08/04/2023 13:11:46 08/03/19 24 08/03/2023 CMP (COMP REHEN SIVE METAB OLIC PANEL ) eGFR 120 >59 Persi stent reduc tion for 3 month s or more in an eGFR <60 mL/mi n/1.7 3 m2 defin es CKD. Patie nts with eGFR value s>/=6 0 mL/mi n/1.7 3 m2 may also have CKD if evide nce of persi stent protu niuri a is prese nt. Addit ional infor librado rodriguez may be found at www.k doqi. org. Not Available [facility] (Main Location) [address] ,, [place], [address], 08/04/2023 13:11:46 08/03/19 24 08/03/2023 IRON PANEL (WITH TRANS VALERIA N SATUR ATION ) transferrin 238 mg/dL 200-36 0 Not Available [facility] (Main Location) [address] ,, [place], [address], 08/04/2023 13:11:47 08/03/19 24 08/03/2023 IRON PANEL (WITH TRANS VALERIA N SATUR ATION ) iron 121 ug/dL 25-156 Not Available [facility] (Main Location) [address] ,, [place], [address], 08/04/2023 13:11:47 08/03/19 24 08/03/2023 IRON PANEL (WITH TRANS VALERIA N SATUR ATION ) % transferrin saturation 36.31 20.00- 50.00 Not Available [facility] (Main Location) [address] ,, [place], [address], 08/04/2023 13:11:47 08/03/19 24 08/03/2023 IRON PANEL (WITH TRANS VALERIA N SATUR ATION ) TIBC 333 ug/dL 250-45 0 Not Available [facility] (Main Location) [address] ,, [place], [address], 08/04/2023 13:11:47 08/03/19 24 08/03/2023 TSH REFLE X TO FT4 AND FT3 TSH 1.22 ?IU/m L 0.27-4 .20 Not Available [facility] (Main Location) [address] ,, [place], [address], 08/04/2023 13:11:48 08/03/19 24 08/03/2023 VITAM IN B12 AND FOLAT E folate 8.5 NG/mL 4.4-31 .0 Not Available [facility] (Main Location) [address] ,, [place], [address], 08/04/2023 13:11:48 08/03/19 24 08/03/2023 VITAM IN B12 AND FOLAT E vitamin B12 II 431 pg/mL 232-12 45 Not Available [facility] (Main Location) [address] ,, [place], [address], 08/04/2023 13:11:48 08/03/19 24 08/03/2023 HEMOG LOBIN A1C HGBA1C 5.1 % 4.0-6. 0 Not Available [facility] (Main Location) [address] ,, [place], [address], 08/04/2023 13:12:12 11/12/19 24 11/12/2023 AMYLA SE amylase 83.0 U/L 31.0-1 24.0 Not Available [facility] [address] [facility] [address], [place], [address], 11/15/2023 11:13:29 11/12/19 24 11/12/2023 LIPAS E lipase 44 U/L 0-59 Not Available [facility] [address] [facility] [address], [place], [address], 11/15/2023 11:13:30 11/12/19 24 11/12/2023 LIPID PANEL W/ CALC. LDL cholesterol, total 222 mg/dL 100-19 9 high Not Available [facility] [address] [facility] [address], [place], [address], 11/15/2023 11:13:30 11/12/19 24 11/12/2023 LIPID PANEL W/ CALC. LDL HDL cholesterol 65 mg/dL =>40 Not Available [facility] [address] [facility] [address], [place], [address], 11/15/2023 11:13:30 11/12/19 24 11/12/2023 LIPID PANEL W/ CALC. LDL LDL cholesterol (calculated) 148 mg/dL 0-99 high Not Available [facility] [address] [facility] [address], [place], [address], 11/15/2023 11:13:30 11/12/19 24 11/12/2023 LIPID PANEL W/ CALC. LDL triglyceride s 47 mg/dL 50-[address] [facility] [address] [facility] [address], [place], [address], 11/15/2023 11:13:30 11/12/19 24 11/12/2023 LIPID PANEL W/ CALC. LDL chol/HDL ratio (calculated) 3.42 ratio 0.00-5 .00 Not Available [facility] [address] [facility] [address], [place], [address], 11/15/2023 11:13:30 11/12/19 24 11/12/2023 LIPID PANEL W/ CALC. LDL VLDL cholesterol (calculated) 9 mg/dL 5-40 Not Available [facility] [address] [facility] [address], [place], [address], 11/15/2023 11:13:30 11/12/19 24 11/12/2023 MAGNE SIUM magnesium 2.0 mg/dL 1.6-2. 6 Not Available [facility] [address] [facility] [address], [place], [address], 11/15/2023 11:13:30 11/12/19 24 11/12/2023 THYRO ID-ST IM. HORMO NE (TSH) , HIGH- SENSI TIVE thyroid-stim . hormone (TSH), hs 1.25 uIU/m L 0.27-4 .20 Not Available [facility] [address] [facility] [address], [place], [address], 11/15/2023 11:13:31 11/12/19 24 11/14/2023 CORTI KERA cortisol 3.4 ug/dL 6.2-19 .4 low Pleas e Note: The refer ence inter renetta and norberto ing for this test is for an AM colle ction . If this is a PM colle ction pleas e use: Alyssa kera PM: 2.3-1 1.9 Not Available [facility] [address], [place], [address], 11/15/2023 11:13:31 11/12/19 24 11/15/2023 D-DIM ER D-dimer 0.43 mg/L_ feu 0.00-0 .49 normal Accor ding to the assay manuf actur er's publi shed packa ge inser t, a cesilia l (<0.5 0 mg/L FEU) D-dim er resul t in conju nctio n with a non-h igh clini jalen proba bilit y asses sment , exclu emily deep vein throm bosis (DVT) and pulmo nary embol ism (PE) with high sensi tivit y. D-dim er value s incre ase with age and this can make VTE exclu eboni of an older popul ation diffi cult. To addre ss this, the Ameri can Colle ge of Physi cians , based on best avail able evide nce and recen t guide lines , recom mends that clini cians use age-a djust ed D-dim er thres holds in patie nts great er than 50 years of age with: a) a low proba bilit y of PE who do not meet all Pulmo nary Embol ism Rule Out Crite maeve, or b) in those with inter media te proba bilit y of PE. The formu la for an age-a djust ed D-dim er cut-o ff is age/ 100 . For examp le, a 60 year old patie nt would have an age-a djust ed cut-o ff of 0.60 mg/L FEU and an 80 year old 0.80 mg/L FEU. Not Available [facility] [address] [facility] [address], [place], [address], 11/15/2023 11:13:32 11/12/19 24 11/12/2023 urina lysis , dipst ick Leukocytes Negati ve Not Available [facility], [facility] [address], [place], [address], 11/12/2023 11:49:23 11/12/19 24 11/12/2023 urina lysis , dipst ick Nitrite negati ve Not Available [facility], [facility] [address], [place], [address], 11/12/2023 11:49:23 11/12/19 24 11/12/2023 urina lysis , dipst ick Urobilinogen .[address] [facility] [address], [place], [address], 11/12/2023 11:49:23 11/12/19 24 11/12/2023 urina lysis , dipst ick Protein Trace Not Available [facility], [facility] [address], [place], [address], 11/12/2023 11:49:23 11/12/19 24 11/12/2023 urina lysis , dipst ick pH 7.5 Not Available [facility], [facility] [address], [place], [address], 11/12/2023 11:49:23 11/12/19 24 11/12/2023 urina lysis , dipst ick Blood Negati ve Not Available [facility], [facility] [address], [place], [address], 11/12/2023 11:49:23 11/12/19 24 11/12/2023 urina lysis , dipst ick Specific [place] 1.005 Not Available [facility] [address], [place], [address], 11/12/2023 11:49:23 11/12/19 24 11/12/2023 urina lysis , dipst ick Ketone Negati ve Not Available [facility], [facility] [address] [facility] [address], [place], [address], 11/12/2023 11:49:23 11/12/19 24 11/12/2023 urina lysis , dipst ick Bilirubin Negati ve Not Available [facility], [facility] [address] [facility] [address], [place], [address], 11/12/2023 11:49:23 11/12/19 24 11/12/2023 urina lysis , dipst ick Glucose Negati ve Not Available [facility], [facility] [address] [facility] [address], [place], [address], 11/12/2023 11:49:23 11/12/19 24 11/12/2023 urina lysis , dipst ick Appearance Clear Not Available [facility] [address] [facility] [address], [place], [address], 11/12/2023 11:49:23 11/12/19 24 11/12/2023 urina lysis , dipst ick Color Pale Yellow Not Available [facility], [facility] [address] [facility] [address], [place], [address], 11/12/2023 11:49:23 11/29/19 24 11/29/2023 LIPID PANEL W/ CALC. LDL cholesterol, total 225 mg/dL 100-19 9 high Not Available [facility] [address], [place], [address], 12/01/2023 19:10:31 11/29/19 24 11/29/2023 LIPID PANEL W/ CALC. LDL HDL cholesterol 60 mg/dL =>40 Not Available [facility] [address], [place], [address], 12/01/2023 19:10:31 11/29/19 24 11/29/2023 LIPID PANEL W/ CALC. LDL LDL cholesterol (calculated) 150 mg/dL 0-99 high Not Available [facility] [address] [facility] [address], [place], [address], 12/01/2023 19:10:31 11/29/19 24 11/29/2023 LIPID PANEL W/ CALC. LDL triglyceride s 75 mg/dL 50-[address] [facility] [address] [facility] [address], [place], [address], 12/01/2023 19:10:31 11/29/19 24 11/29/2023 LIPID PANEL W/ CALC. LDL chol/HDL ratio (calculated) 3.75 ratio 0.00-5 .00 Not Available [facility] [address] [facility] [address], [place], [address], 12/01/2023 19:10:31 11/29/19 24 11/29/2023 LIPID PANEL W/ CALC. LDL VLDL cholesterol (calculated) 15 mg/dL 5-40 Not Available [facility] [address] [facility] [address], [place], [address], 12/01/2023 19:10:31 11/29/19 24 12/01/2023 ACTH PLASM A acth, plasma 9.3 pg/mL 7.2-63 .3 normal ACTH refer ence inter renetta for sampl es colle cted betwe en 7 and 10 AM. Not Available [facility] [address] [facility] [address], [place], [address], 12/01/2023 19:10:32 11/29/19 24 12/01/2023 CORTI KERA - AM cortisol - AM 5.9 ug/dL 6.2-19 .4 low Not Available [facility] [address] [facility] [address], [place], [address], 12/01/2023 19:10:33 11/30/19 24 12/08/2023 CORTI KERA URINA RY FREE cortisol,F,u g/L,U 13 ug/L undefi stacia normal Total Volum e: 2775 mL Not Available [facility] [address] [facility] [address], [place], [address], 12/08/2023 15:13:40 11/30/19 24 12/08/2023 CORTI KERA URINA RY FREE cortisol,F,u g/24HR,U 36 ug/24 _HR 6-42 normal Not Available [facility] [address] [facility] [address], [place], [address], 12/08/2023 15:13:40 03/13/20 24 03/13/2024 COMPR EHENS ANNI METAB OLIC PANEL sodium 139 mmol/ L 134-14 4 Not Available [facility] [address] [facility] [address], [place], [address], 03/16/2024 08:24:06 03/13/20 24 03/13/2024 COMPR EHENS ANNI METAB OLIC PANEL potassium 4.2 mmol/ L 3.5-5. 2 Not Available [facility] [address] [facility] [address], [place], [address], 03/16/2024 08:24:06 03/13/20 24 03/13/2024 COMPR EHENS ANNI METAB OLIC PANEL chloride 100 mmol/ L 97-108 Not Available [facility] [address] [facility] [address], [place], [address], 03/16/2024 08:24:06 03/13/20 24 03/13/2024 COMPR EHENS ANNI METAB OLIC PANEL carbon dioxide (co2) 28.0 mmol/ L 18.0-2 9.0 Not Available [facility] [address] [facility] [address], [place], [address], 03/16/2024 08:24:06 03/13/20 24 03/13/2024 COMPR EHENS ANNI METAB OLIC PANEL glucose 85 mg/dL 65-99 Cesilia l Fasti ng: < 100 mg/dL Impai red Fasti n - 125 mg/dL Diagn ostic of Diabe myla: => 126 mg/dL Ameri can [facility], 2007 Not Available [facility] [address] [facility] [address], [place], [address], 03/16/2024 08:24:06 03/13/20 24 03/13/2024 COMPR EHENS ANNI METAB OLIC PANEL urea nitrogen (BUN) 7 mg/dL 6-20 Not Available [facility] [address] [facility] [address], [place], [address], 03/16/2024 08:24:06 03/13/20 24 03/13/2024 COMPR EHENS ANNI METAB OLIC PANEL creatinine 0.78 mg/dL 0.57-1 .00 Not Available [facility] [address] [facility] [address], [place], [address], 03/16/2024 08:24:06 03/13/20 24 03/13/2024 COMPR EHENS ANNI METAB OLIC PANEL eGFR 103 mL/mi nute/ 1.73_ m2 >59 MDRD Study Equat ion: The calcu lated GFR is NOT appli cable for pedia tric (< 18 years old) and > 70 year old patie nts and patie nts that are NOT of stead y state . Not Available [facility] [address] [facility] [address], [place], [address], 03/16/2024 08:24:06 03/13/20 24 03/13/2024 COMPR EHENS ANNI METAB OLIC PANEL calcium 9.4 mg/dL 8.7-10 .2 Not Available [facility] [address] [facility] [address], [place], [address], 03/16/2024 08:24:06 03/13/20 24 03/13/2024 COMPR EHENS ANNI METAB OLIC PANEL protein, total 6.5 gm/dL 6.4-8. 3 Not Available [facility] [address] [facility] [address], [place], [address], 03/16/2024 08:24:06 03/13/20 24 03/13/2024 COMPR EHENS ANNI METAB OLIC PANEL albumin 4.2 gm/dL 3.5-5. 2 Not Available [facility] [address] [facility] [address], [place], [address], 03/16/2024 08:24:06 03/13/20 24 03/13/2024 COMPR EHENS ANNI METAB OLIC PANEL bilirubin, total 0.50 mg/dL 0.00-1 .20 Not Available [place] [id number] [facility] [address], [place], [address], 03/16/2024 08:24:06 03/13/20 24 03/13/2024 COMPR EHENS ANNI METAB OLIC PANEL alkaline phosphatase (ALP) 71 U/L 39-117 Not Available [facility] [address] [facility] [address], [place], [address], 03/16/2024 08:24:06 03/13/20 24 03/13/2024 COMPR EHENS ANNI METAB OLIC PANEL aspartate aminotransfe rase (AST) 39 U/L 0-32 high Not Available [facility] [address] [facility] [address], [place], [address], 03/16/2024 08:24:06 03/13/20 24 03/13/2024 COMPR EHENS ANNI METAB OLIC PANEL alanine aminotransfe rase (ALT) 26 U/L 0-33 Not Available [address], [place], [address], 03/16/2024 08:24:06 03/13/20 24 03/13/2024 COMPR EHENS ANNI METAB OLIC PANEL A/G ratio (calculated) 1.8 ratio 1.0-2. 7 Not Available [address], [place], [address], 03/16/2024 08:24:06 03/13/20 24 03/13/2024 COMPR EHENS ANNI METAB OLIC PANEL globulin (calculated) 2.3 gm/dL 1.5-3. 8 Not Available [facility] [address] [facility] [address], [place], [address], 03/16/2024 08:24:06 03/13/20 24 03/13/2024 COMPR EHENS ANNI METAB OLIC PANEL BUN/creatini ne ratio (calculated) 9.0 ratio 8.0-20 .0 Not Available [facility] [address] [facility] [address], [place], [address], 03/16/2024 08:24:06 03/13/20 24 03/13/2024 COMPR EHENS ANNI METAB OLIC PANEL serum hemolysis index NORMAL index normal Not Available [facility] [address] [facility] [address], [place], [address], 03/16/2024 08:24:06 03/13/20 24 03/13/2024 LIPID PANEL W/ CALC. LDL cholesterol, total 216 mg/dL 100-19 9 high Not Available [facility] [address] [facility] [address], [place], [address], 03/16/2024 08:24:08 03/13/20 24 03/13/2024 LIPID PANEL W/ CALC. LDL HDL cholesterol 56 mg/dL =>40 Not Available [facility] [address] [facility] [address], [place], [address], 03/16/2024 08:24:08 03/13/20 24 03/13/2024 LIPID PANEL W/ CALC. LDL LDL cholesterol (calculated) 150 mg/dL 0-99 high Not Available [facility] [address] [facility] [address], [place], [address], 03/16/2024 08:24:08 03/13/20 24 03/13/2024 LIPID PANEL W/ CALC. LDL triglyceride s 52 mg/dL 50-[address] [facility] [address] [facility] [address], [place], [address], 03/16/2024 08:24:08 03/13/20 24 03/13/2024 LIPID PANEL W/ CALC. LDL chol/HDL ratio (calculated) 3.86 ratio 0.00-5 .00 Not Available [facility] [address] [facility] [address], [place], [address], 03/16/2024 08:24:08 03/13/20 24 03/13/2024 LIPID PANEL W/ CALC. LDL VLDL cholesterol (calculated) 10 mg/dL 5-40 Not Available [facility] [address] [facility] [address], [place], [address], 03/16/2024 08:24:08 03/13/20 24 03/13/2024 RHEUM ATOID FACTO R rheumatoid factor 10.0 IU/mL 0.0-13 .9 Not Available [facility] [address] [facility] [address], [place], [address], 03/16/2024 08:24:08 03/13/20 24 03/13/2024 ERYTH ROCYT E SEDIM ENTAT ION RATE (ESR) erythrocyte sedimentatio n rate (ESR) 4 mm/HR 0-32 Not Available [facility] [address] [facility] [address], [place], [address], 03/16/2024 08:24:09 03/13/20 24 03/16/2024 ANTIN UCLEA R ANTIB VALERIE (SLIM) , BY IFA SLIM by ifa rfx titer/patter n NEGATI VE normal Negat anni <1:80 Borde rline 1:80 Posit anni >1:80 ICAP nomen clatu re: AC-0 For more infor matio n about Hep-2 cell patte rns use ANApa ttern s.org , the offic iakiersten barrera te for the Inter natio nal Conse nsus on Antin uclea r Antib valerie (SLIM) Patte rns (ICAP ). Not Available [facility] [address] [facility] [address], [place], [address], 03/16/2024 08:24:09 03/13/2003/15/2024 CCP ANTIB ODIES IGG/I GA anti-ccp Ab, IgG/IgA 2 units 0-19 normal Negat anni <20 Weak posit anni 20 - 39 Moder ate posit anni 40 - 59 Stron g posit anni >59 Not Available [facility] [address] [facility] [address], [place], [address], 03/16/2024 08:24:10 05/16/2005/16/2024 COMPR EHENS ANNI METAB OLIC PANEL sodium 140 mmol/ L 134-14 4 Not Available [facility] [address] [facility] [address], [place], [address], 05/17/2024 13:16:12 05/16/2005/16/2024 COMPR EHENS ANNI METAB OLIC PANEL potassium 4.4 mmol/ L 3.5-5. 2 Not Available [facility] [address] [facility] [address], [place], [address], 05/17/2024 13:16:12 05/16/2005/16/2024 COMPR EHENS ANNI METAB OLIC PANEL chloride 103 mmol/ L 98-107 Not Available [facility] [address] [facility] [address], [place], [address], 05/17/2024 13:16:12 05/16/2005/16/2024 COMPR EHENS ANNI METAB OLIC PANEL carbon dioxide (co2) 26.0 mmol/ L 18.0-2 9.0 Not Available [facility] [address] [facility] [address], [place], [address], 05/17/2024 13:16:12 05/16/2005/16/2024 COMPR EHENS ANNI METAB OLIC PANEL glucose 80 mg/dL 65-99 Cesilia l Fasti n - 99 mg/dL Impai red Fasti n - 125 mg/dL Diagn ostic of Diabe myla: => 126 mg/dL Ameri can [facility] iatio n, 2007 Not Available [facility] [address] [facility] [address], [place], [address], 05/17/2024 13:16:12 05/16/2005/16/2024 COMPR EHENS ANNI METAB OLIC PANEL urea nitrogen (BUN) 11 mg/dL 6-20 Not Available [facility] [address] [facility] [address], [place], [address], 05/17/2024 13:16:12 05/16/2005/16/2024 COMPR EHENS ANNI METAB OLIC PANEL creatinine 0.84 mg/dL 0.57-1 .00 Not Available [facility] [address] [facility] [address], [place], [address], 05/17/2024 13:16:12 05/16/2005/16/2024 COMPR EHENS ANNI METAB OLIC PANEL eGFR 94 mL/mi nute/ 1.73_ m2 >59 MDRD Study Equat ion: The calcu lated GFR is NOT appli cable for pedia tric (< 18 years old) and > 70 year old patie nts and patie nts that are NOT of stead y state . Not Available [facility] [address] [facility] [address], [place], [address], 05/17/2024 13:16:12 05/16/2005/16/2024 COMPR EHENS ANNI METAB OLIC PANEL calcium 9.2 mg/dL 8.7-10 .2 Not Available [facility] [address] [facility] [address], [place], [address], 05/17/2024 13:16:12 05/16/20 24 05/16/2024 COMPR EHENS ANNI METAB OLIC PANEL protein, total 6.6 gm/dL 6.4-8. 3 Not Available [facility] [address] [facility] [address], [place], [address], 05/17/2024 13:16:12 05/16/20 24 05/16/2024 COMPR EHENS ANNI METAB OLIC PANEL albumin 4.1 gm/dL 3.5-5. 2 Not Available [facility] [address] [facility] [address], [place], [address], 05/17/2024 13:16:12 05/16/2005/16/2024 COMPR EHENS ANNI METAB OLIC PANEL bilirubin, total 0.60 mg/dL 0.00-1 .20 Not Available [facility] [address] [facility] [address], [place], [address], 05/17/2024 13:16:12 05/16/20 24 05/16/2024 COMPR EHENS ANNI METAB OLIC PANEL alkaline phosphatase (ALP) 75 U/L 39-[address] [facility] [address] [facility] [address], [place], [address], 05/17/2024 13:16:12 05/16/20 24 05/16/2024 COMPR EHENS ANNI METAB OLIC PANEL aspartate aminotransfe rase (AST) 25 U/L 0-32 Not Available [facility] [address] [facility] [address], [place], [address], 05/17/2024 13:16:12 05/16/20 24 05/16/2024 COMPR EHENS ANNI METAB OLIC PANEL alanine aminotransfe rase (ALT) 28 U/L 0-33 Not Available [facility] [address] [facility] [address], [place], [address], 05/17/2024 13:16:12 05/16/20 24 05/16/2024 COMPR EHENS ANNI METAB OLIC PANEL A/G ratio (calculated) 1.6 ratio 1.0-2. 7 Not Available [facility] [address] [facility] [address], [place], [address], 05/17/2024 13:16:12 05/16/20 24 05/16/2024 COMPR EHENS ANNI METAB OLIC PANEL globulin (calculated) 2.5 gm/dL 1.5-3. 8 Not Available [facility] [address] [facility] [address], [place], [address], 05/17/2024 13:16:12 05/16/20 24 05/16/2024 COMPR EHENS ANNI METAB OLIC PANEL BUN/creatini ne ratio (calculated) 13.1 ratio 8.0-20 .0 Not Available [facility] [address] [facility] [address], [place], [address], 05/17/2024 13:16:12 05/16/20 24 05/16/2024 COMPR EHENS ANNI METAB OLIC PANEL serum hemolysis index NORMAL index normal Not Available [facility] [address] [facility] [address], [place], [address], 05/17/2024 13:16:12 05/16/20 24 05/16/2024 LIPID PANEL W/ CALC. LDL cholesterol, total 156 mg/dL 100-19 9 Not Available [facility] [address] [facility] [address], [place], [address], 05/17/2024 13:16:13 05/16/20 24 05/16/2024 LIPID PANEL W/ CALC. LDL HDL cholesterol 51 mg/dL =>40 Not Available [facility] [address] [facility] [address], [place], [address], 05/17/2024 13:16:13 05/16/20 24 05/16/2024 LIPID PANEL W/ CALC. LDL LDL cholesterol (calculated) 95 mg/dL 0-99 Not Available [facility] [address] [facility] [address], [place], [address], 05/17/2024 13:16:13 05/16/20 24 05/16/2024 LIPID PANEL W/ CALC. LDL triglyceride s 48 mg/dL 50-[address] [facility] [address] [facility] [address], [place], [address], 05/17/2024 13:16:13 05/16/20 24 05/16/2024 LIPID PANEL W/ CALC. LDL chol/HDL ratio (calculated) 3.06 ratio 0.00-5 .00 Not Available [facility] [address] [facility] [address], [place], [address], 05/17/2024 13:16:13 05/16/20 24 05/16/2024 LIPID PANEL W/ CALC. LDL VLDL cholesterol (calculated) 10 mg/dL 5-40 Not Available [facility] [address] [facility] [address], [place], [address], 05/17/2024 13:16:13 06/26/20 24 06/26/2024 COMPR EHENS ANNI DRUG PROFI LE A, URINE CONFI RMATI ON amphetamine Detect ed 250 abnormal Not Available [facility] [address] [facility] [address], [place], [address], 06/29/2024 15:34:54 06/26/20 24 06/26/2024 COMPR EHENS ANNI DRUG PROFI LE A, URINE CONFI RMATI ON methamphetam ine Not Detect ed 250 Not Available [facility] [address] [facility] [address], [place], [address], 06/29/2024 15:34:54 06/26/20 24 06/26/2024 COMPR EHENS ANNI DRUG PROFI LE A, URINE CONFI RMATI ON mda Not Detect ed 100 Not Available [facility] [address] [facility] [address], [place], [address], 06/29/2024 15:34:54 06/26/20 24 06/26/2024 COMPR EHENS ANNI DRUG PROFI LE A, URINE CONFI RMATI ON MDMA Not Detect ed 100 Not Available [facility] [address] [facility] [address], [place], [address], 06/29/2024 15:34:54 06/26/20 24 06/26/2024 COMPR EHENS ANNI DRUG PROFI LE A, URINE CONFI RMATI ON mdea Not Detect ed 100 Not Available [facility] [address] [facility] [address], [place], [address], 06/29/2024 15:34:54 06/26/20 24 06/26/2024 COMPR EHENS ANNI DRUG PROFI LE A, URINE CONFI RMATI ON 7-aminoclona zepam Not Detect ed 100 Not Available [facility] [address] [place] [address] [address], [place], [address], 06/29/2024 15:34:54 06/26/20 24 06/26/2024 COMPR EHENS ANNI DRUG PROFI LE A, URINE CONFI RMATI ON alprazolam Not Detect ed 100 Not Available [facility] [address] [facility] [address], [place], [address], 06/29/2024 15:34:54 06/26/20 24 06/26/2024 COMPR EHENS ANNI DRUG PROFI LE A, URINE CONFI RMATI ON hydroxyalpra zolam Not Detect ed 100 Not Available [facility] [address] [facility] [address], [place], [address], 06/29/2024 15:34:54 06/26/20 24 06/26/2024 COMPR EHENS ANNI DRUG PROFI LE A, URINE CONFI RMATI ON nordiazepam Not Detect ed 100 Not Available [facility] [address] [facility] [address], [place], [address], 06/29/2024 15:34:54 06/26/20 24 06/26/2024 COMPR EHENS ANNI DRUG PROFI LE A, URINE CONFI RMATI ON temazepam Not Detect ed 100 Not Available [facility] [address] [facility] [address], [place], [address], 06/29/2024 15:34:54 06/26/20 24 06/26/2024 COMPR EHENS ANNI DRUG PROFI LE A, URINE CONFI RMATI ON lorazepam Not Detect ed 100 Not Available [facility] [address] [facility] [address], [place], [address], 06/29/2024 15:34:54 06/26/20 24 06/26/2024 COMPR EHENS ANNI DRUG PROFI LE A, URINE CONFI RMATI ON benzoylecgon ine Not Detect ed 200 Not Available [facility] [address] [facility] [address], [place], [address], 06/29/2024 15:34:54 06/26/20 24 06/26/2024 COMPR EHENS ANNI DRUG PROFI LE A, URINE CONFI RMATI ON 6-monoacetyl morphine Not Detect ed 10 Not Available [facility] [address] [facility] [address], [place], [address], 06/29/2024 15:34:54 06/26/20 24 06/26/2024 COMPR EHENS ANNI DRUG PROFI LE A, URINE CONFI RMATI ON amitriptylin e Not Detect ed 50 Not Available [facility] [address] [facility] [address], [place], [address], 06/29/2024 15:34:54 06/26/20 24 06/26/2024 COMPR EHENS ANNI DRUG PROFI LE A, URINE CONFI RMATI ON cyclobenzapr ine Not Detect ed 50 Not Available [facility] [address] [facility] [address], [place], [address], 06/29/2024 15:34:54 06/26/20 24 06/26/2024 COMPR EHENS ANNI DRUG PROFI LE A, URINE CONFI RMATI ON desipramine Not Detect ed 50 Not Available [facility] [address] [facility] [address], [place], [address], 06/29/2024 15:34:54 06/26/20 24 06/26/2024 COMPR EHENS ANNI DRUG PROFI LE A, URINE CONFI RMATI ON diazepam Not Detect ed 100 Not Available [facility] [address] [place] [address] [address], [place], [address], 06/29/2024 15:34:54 06/26/20 24 06/26/2024 COMPR EHENS ANNI DRUG PROFI LE A, URINE CONFI RMATI ON doxepin Not Detect ed 50 Not Available [facility] [address] [place] [address] [address], [place], [address], 06/29/2024 15:34:54 06/26/20 24 06/26/2024 COMPR EHENS ANNI DRUG PROFI LE A, URINE CONFI RMATI ON imipramine Not Detect ed 50 Not Available [facility] [address] [place] [address] [address], [place], [address], 06/29/2024 15:34:54 06/26/20 24 06/26/2024 COMPR EHENS ANNI DRUG PROFI LE A, URINE CONFI RMATI ON nortriptylin e Not Detect ed 100 Not Available [facility] [address] [place] [address] [address], [place], [address], 06/29/2024 15:34:54 06/26/20 24 06/26/2024 COMPR EHENS ANNI DRUG PROFI LE A, URINE CONFI RMATI ON ritalinic acid Not Detect ed 100 Not Available [facility] [address] [place] [address] [address], [place], [address], 06/29/2024 15:34:54 06/26/20 24 06/26/2024 COMPR EHENS ANNI DRUG PROFI LE A, URINE CONFI RMATI ON codeine Not Detect ed 100 Not Available [facility] [address] [facility] [address], [place], [address], 06/29/2024 15:34:54 06/26/20 24 06/26/2024 COMPR EHENS ANNI DRUG PROFI LE A, URINE CONFI RMATI ON hydrocodone Not Detect ed 100 Not Available [facility] [address] [facility] [address], [place], [address], 06/29/2024 15:34:54 06/26/20 24 06/26/2024 COMPR EHENS ANNI DRUG PROFI LE A, URINE CONFI RMATI ON hydromorphon e Not Detect ed 100 Not Available [facility] [address] [facility] [address], [place], [address], 06/29/2024 15:34:54 06/26/20 24 06/26/2024 COMPR EHENS ANNI DRUG PROFI LE A, URINE CONFI RMATI ON morphine Not Detect ed 100 Not Available [facility] [address] [facility] [address], [place], [address], 06/29/2024 15:34:54 06/26/20 24 06/26/2024 COMPR EHENS ANNI DRUG PROFI LE A, URINE CONFI RMATI ON norhydrocodo ne Not Detect ed 100 Not Available [facility] [address] [facility] [address], [place], [address], 06/29/2024 15:34:54 06/26/20 24 06/26/2024 COMPR EHENS ANNI DRUG PROFI LE A, URINE CONFI RMATI ON noroxycodone Not Detect ed 100 Not Available [facility] [address] [facility] [address], [place], [address], 06/29/2024 15:34:54 06/26/20 24 06/26/2024 COMPR EHENS ANNI DRUG PROFI LE A, URINE CONFI RMATI ON oxycodone Not Detect ed 100 Not Available [facility] [address] [facility] [address], [place], [address], 06/29/2024 15:34:54 06/26/20 24 06/26/2024 COMPR EHENS ANNI DRUG PROFI LE A, URINE CONFI RMATI ON oxymorphone Not Detect ed 100 Not Available [facility] [address] [facility] [address], [place], [address], 06/29/2024 15:34:54 06/26/20 24 06/26/2024 COMPR EHENS ANNI DRUG PROFI LE A, URINE CONFI RMATI ON buprenorphin e Not Detect ed 50 Not Available [facility] [address] [place] [address] [address], [place], [address], 06/29/2024 15:34:54 06/26/20 24 06/26/2024 COMPR EHENS ANNI DRUG PROFI LE A, URINE CONFI RMATI ON norbuprenorp kishore Not Detect ed 100 Not Available [facility] [address] [facility] [address], [place], [address], 06/29/2024 15:34:54 06/26/20 24 06/26/2024 COMPR EHENS ANNI DRUG PROFI LE A, URINE CONFI RMATI ON fentanyl Not Detect ed 10 Not Available [facility] [address] [place] [address] [address], [place], [address], 06/29/2024 15:34:54 06/26/20 24 06/26/2024 COMPR EHENS ANNI DRUG PROFI LE A, URINE CONFI RMATI ON norfentanyl Not Detect ed 50 Not Available [facility] [address] [place] [address] [address], [place], [address], 06/29/2024 15:34:54 06/26/20 24 06/26/2024 COMPR EHENS ANNI DRUG PROFI LE A, URINE CONFI RMATI ON methadone Not Detect ed 100 Not Available [facility] [address] [facility] [address], [place], [address], 06/29/2024 15:34:54 06/26/20 24 06/26/2024 COMPR EHENS ANNI DRUG PROFI LE A, URINE CONFI RMATI ON EDDP Not Detect ed 50 Not Available [facility] [address] [facility] [address], [place], [address], 06/29/2024 15:34:54 06/26/20 24 06/26/2024 COMPR EHENS ANNI DRUG PROFI LE A, URINE CONFI RMATI ON meperidine Not Detect ed 100 Not Available [facility] [address] [facility] [address], [place], [address], 06/29/2024 15:34:54 06/26/20 24 06/26/2024 COMPR EHENS ANNI DRUG PROFI LE A, URINE CONFI RMATI ON normeperidin e Not Detect ed 100 Not Available [facility] [address] [facility] [address], [place], [address], 06/29/2024 15:34:54 06/26/20 24 06/26/2024 COMPR EHENS ANNI DRUG PROFI LE A, URINE CONFI RMATI ON tramadol Not Detect ed 100 Not Available [facility] [address] [facility] [address], [place], [address], 06/29/2024 15:34:54 06/26/20 24 06/26/2024 COMPR EHENS ANNI DRUG PROFI LE A, URINE CONFI RMATI ON O-desmethylt ramadol Not Detect ed 100 Not Available [facility] [address] [facility] [address], [place], [address], 06/29/2024 15:34:54 06/26/20 24 06/26/2024 COMPR EHENS ANNI DRUG PROFI LE A, URINE CONFI RMATI ON tapentadol Not Detect ed 100 Not Available [facility] [id number] [place] [address] [address], [place], [address], 06/29/2024 15:34:54 06/26/20 24 06/26/2024 COMPR EHENS ANNI DRUG PROFI LE A, URINE CONFI RMATI ON naloxone Not Detect ed 100 Not Available [facility] [address] [facility] [address], [place], [address], 06/29/2024 15:34:54 06/26/20 24 06/26/2024 COMPR EHENS ANNI DRUG PROFI LE A, URINE CONFI RMATI ON pregabalin Not Detect ed 100 Not Available [facility] [address] [facility] [address], [place], [address], 06/29/2024 15:34:54 06/26/20 24 06/26/2024 COMPR EHENS ANNI DRUG PROFI LE A, URINE CONFI RMATI ON gabapentin Not Detect ed 500 Not Available [facility] [address] [facility] [address], [place], [address], 06/29/2024 15:34:54 06/26/20 24 06/26/2024 COMPR EHENS ANNI DRUG PROFI LE A, URINE CONFI RMATI ON naltrexone Not Detect ed 100 Not Available [facility] [address] [facility] [address], [place], [address], 06/29/2024 15:34:54 06/26/20 24 06/26/2024 COMPR EHENS ANNI DRUG PROFI LE A, URINE CONFI RMATI ON fluoxetine Not Detect ed 100 Not Available [facility] [address] [facility] [address], [place], [address], 06/29/2024 15:34:54 06/26/20 24 06/26/2024 COMPR EHENS ANNI DRUG PROFI LE A, URINE CONFI RMATI ON sertraline Not Detect ed 100 Not Available [facility] [address] [facility] [address], [place], [address], 06/29/2024 15:34:54 06/26/20 24 06/26/2024 COMPR EHENS ANNI DRUG PROFI LE A, URINE CONFI RMATI ON zolpidem Not Detect ed 100 Not Available [facility] [address] [facility] [address], [place], [address], 06/29/2024 15:34:54 06/26/20 24 06/26/2024 URINE DRUG SCREE N, 6-NINO EL amphetamines Positi ve negati ve abnormal Amphe tamin e Cutof f=500 Not Available [facility] [address] [facility] [address], [place], [address], 06/29/2024 15:34:55 06/26/20 24 06/26/2024 URINE DRUG SCREE N, 6-NINO EL benzodiazepi geoff Negati ve negati ve Benzo diaze pines Cutof f=100 Not Available [facility] [address] [facility] [address], [place], [address], 06/29/2024 15:34:55 06/26/20 24 06/26/2024 URINE DRUG SCREE N, 6-NINO EL cocaine Negati ve negati ve Cocai ne Cutof f=300 Not Available [facility] [address] [facility] [address], [place], [address], 06/29/2024 15:34:55 06/26/20 24 06/26/2024 URINE DRUG SCREE N, 6-NINO EL opiates Negati ve negati ve Opiat es Cutof f=300 Not Available [facility] [address] [facility] [address], [place], [address], 06/29/2024 15:34:55 06/26/20 24 06/26/2024 URINE DRUG SCREE N, 6-NINO EL oxycodone Negati ve negati ve Oxyco done Cutof f=300 Not Available [facility] [address] [facility] [address], [place], [address], 06/29/2024 15:34:55 06/26/20 24 06/26/2024 URINE DRUG SCREE N, 6-NINO EL cannabinoid (THC) Positi ve negati ve abnormal Inclu emily canna bis, marij uana and THC metab olite s. Chichoa binoi d Cutof f=50 Not Available [facility] [address] [facility] [address], [place], [address], 06/29/2024 15:34:55 06/26/20 24 06/26/2024 URINE DRUG SCREE N, 6-NINO EL creatinine - uds urine 68.7 mg/dL >20.[address] [facility] [address] [facility] [address], [place], [address], 06/29/2024 15:34:55 06/26/20 24 06/26/2024 URINE DRUG SCREE N, 6-NINO EL pH (uds) 6.5 4.5-10 .9 Not Available [facility] [address] [facility] [address], [place], [address], 06/29/2024 15:34:55 06/26/20 24 06/26/2024 URINE DRUG SCREE N, 6-NINO EL specific gravity (uds) 1.010 1.003- 1.035 Not Available [facility] [address] [facility] [address], [place], [address], 06/29/2024 15:34:55 06/26/20 24 06/26/2024 URINE DRUG SCREE N, 6-NINO EL amphetamines Positi ve negati ve abnormal Amphe tamin e Cutof f=500 Not Available [facility] [address] [facility] [address], [place], [address], 06/29/2024 15:34:55 06/26/20 24 06/26/2024 URINE DRUG SCREE N, 6-NINO EL benzodiazepi geoff Negati ve negati ve Benzo diaze pines Cutof f=100 Not Available [facility] [address] [facility] [address], [place], [address], 06/29/2024 15:34:55 06/26/20 24 06/26/2024 URINE DRUG SCREE N, 6-NINO EL cocaine Negati ve negati ve Cocai ne Cutof f=300 Not Available [facility] [address] [facility] [address], [place], [address], 06/29/2024 15:34:55 06/26/20 24 06/26/2024 URINE DRUG SCREE N, 6-NINO EL opiates Negati ve negati ve Opiat es Cutof f=300 Not Available [facility] [address] [facility] [address], [place], [address], 06/29/2024 15:34:55 06/26/20 24 06/26/2024 URINE DRUG SCREE N, 6-NINO EL oxycodone Negati ve negati ve Oxyco done Cutof f=300 Not Available [facility] [address] [facility] [address], [place], [address], 06/29/2024 15:34:55 06/26/20 24 06/26/2024 URINE DRUG SCREE N, 6-NINO EL cannabinoid (THC) Positi ve negati ve abnormal Inclu emily canna bis, marij uana and THC metab olite s. Canna binoi d Cutof f=50 Not Available [facility] [address] [facility] [address], [place], [address], 06/29/2024 15:34:55 06/26/20 24 06/26/2024 URINE DRUG SCREE N, 6-NINO EL creatinine - uds urine 68.7 mg/dL >20.[address] [facility] [address] [facility] [address], [place], [address], 06/29/2024 15:34:55 06/26/20 24 06/26/2024 URINE DRUG SCREE N, 6-NINO EL pH (uds) 6.5 4.5-10 .9 Not Available [facility] [address], [place], [address], 06/29/2024 15:34:55 06/26/20 24 06/26/2024 URINE DRUG SCREE N, 6-NINO EL specific gravity (uds) 1.010 1.003- 1.035 Not Available [facility] [address], [place], [address], 06/29/2024 15:34:55 11/12/19 24 11/12/2023 elect rocar diogr am No observ ation record ed. [facility], [facility] [address], [place], [address], 01/10/2024 14:53:17 11/12/19 24 11/12/2023 US, echoc ardio gram No observ ation record ed. [facility], [facility] [address], [place], [address], 01/10/2024 14:53:16 11/12/19 24 11/12/2023 elect rocar diogr am No observ ation record ed. [facility], [facility] [address], [place], [address], 01/10/2024 14:53:17 11/23/19 24 11/22/2023 US, abdom en, compl ete No observ ation record ed. [facility] [address], [place], [address], 01/10/2024 14:53:16 12/10/19 24 12/09/2023 MRI, brain , w/o contr ast No observ ation record ed. [facility] [address], [place], [address], 01/10/2024 14:53:16 12/30/19 24 12/16/2023 (BRIGIDO) ankle brach ial index * No observ ation record ed. [employer] [facility], [facility] [address], [place], [address], 01/10/2024 14:53:15 12/30/19 payme nt from insur ance No observ ation record ed. [facility] Not Available 2023 14:53:15 02/03/20 24 02/02/2024 CT, neck, soft tissu e, w/ contr ast No observ ation record ed. [facility] [address], [place], [address], 03/16/2024 10:07:30 03/28/20 24 09/24/2023 elect romyo gram + nerve condu ction study No observ ation record ed. [facility] Available 2023 19:14:46 05/18/20 24 05/18/2024 XR, foot No observ ation record ed. [facility] [address], [place], [address], 06/26/2024 19:14:46 05/18/20 24 05/18/2024 XR, foot No observ ation record ed. [facility] [address], [place], [address], 06/26/2024 19:14:46 05/18/20 24 05/18/2024 XR, hip + pelvi s, bilat eral No observ ation record ed. [facility] [address], [place], [address], 06/26/2024 19:14:46 05/19/20 24 02/02/2024 CT, neck, soft tissu e, w/ contr ast No observ ation record ed. [facility] [address], [place], [address], 06/26/2024 19:14:46 06/27/20 24 05/22/2024 elect martinez laigr am No observ ation record ed. [facility] [address], [place], [address], 06/27/2024 21:35:46 07/05/20 24 07/04/2024 MRI, pelvi s, w/o contr ast No observ ation record ed. [address], [place], [address], 07/10/2024 09:31:14 Result Notes None recorded. 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 56196996 Active 2023 Giselle Velez MD [address], [place], [address], [facility] 4 19:19:47 Marijuana user 822314695 Active 2023 Giselle Velez MD [address], [place], [address], [facility] 4 19:22:17 History of human papilloma virus infection 5031881790990 02 Active 2022 Giselle Velez MD [address], [place], [address], [facility] 3 16:06:58 Family history of coronary arterioscle rosis 717823639 Active 2022 Giselle Velez MD [address], [place], [address], [facility] 3 16:07:09 Vaping Active 2022 Giselle Velez MD [address], [place], [address], [facility] 3 16:07:15 Ex-smoker 5066288 Active 2022 Giselle Velez MD [address], [place], [address], [facility] 3 16:07:18 Body mass index 30+ - obesity 661085628 Active 2022 Giselle Velez MD [address], [place], [address], [facility] 3 16:07:23 Tattoo of skin 650232330829 Active 2022 Giselle Velez MD [address], [place], [address], [facility] 3 16:18:59 Anxiety 82050365 Active 2022 Giselle Velez MD [address], [place], [address], [facility] 3 16:22:40 Attention deficit hyperactivi ty disorder, predominant ly inattentive type 60208881 Active 2022 Giselle Velez MD [address], [place], [address], [facility] 3 12:48:11 Palpitation s 17559406 Active 2023 Giselle Velez MD [address], [place], [address], [facility] 4 11:39:33 Mixed hyperlipide heriberto 064106121 Active 2023 Giselle Velez MD [address], [place], [address], [facility] 4 21:36:19 Anemia 370562423 Active 2023 Giselle Velez MD [address], [place], [address], [place] [facility] 09:41:50 Problem Notes None recorded. Procedures Surgical History Date Name Laterality Status Provider Name and Address Organization Details Recorded Time 3 ligation of bilateral fallopian tubes completed Giselle Velez MD [address], [place], [address], [place] [facility] 04/23/2023 12:53:05 section completed Giselle Velez MD [address], [place], [address], [place] [facility] 04/23/2023 12:53:25 Imaging Results Imaging Date Name Status LastModified by Organization Details LastModified Time 11/12/2023 electrocardiogram completed [facility], [facility] [address], [place], [address], 01/10/2024 14:53:17 11/12/2023 US, echocardiogram completed [facility], [facility] [address], [place], [address], 01/10/2024 14:53:16 11/12/2023 electrocardiogram completed [facility] [address], [place], [address], 01/10/2024 14:53:17 11/22/2023 US, abdomen, complete completed [facility] [address], [place], [address], 01/10/2024 14:53:16 12/09/2023 MRI, brain, w/o contrast completed [facility] [address], [place], [address], 01/10/2024 14:53:16 12/16/2023 (BRIGIDO) ankle brachial index* completed [facility], [facility] [address], [place], [address], 01/10/2024 14:53:15 12/30/2023 payment from insurance completed [facility] Information not available 01/10/2024 14:53:15 02/02/2024 CT, neck, soft tissue, w/ contrast completed [facility] [address], [place], [address], 03/16/2024 10:07:30 09/24/2023 electromyogram + nerve conduction study completed [facility] Information not available 06/26/2024 19:14:46 05/18/2024 XR, foot completed [facility] [address], [place], [address], 06/26/2024 19:14:46 05/18/2024 XR, foot completed [facility] [address], [place], [address], 06/26/2024 19:14:46 05/18/2024 XR, hip + pelvis, bilateral completed [facility] [address], [place], [address], 06/26/2024 19:14:46 02/02/2024 CT, neck, soft tissue, w/ contrast completed [facility] [address], [place], [address], 06/26/2024 19:14:46 05/22/2024 electrocardiogram completed [address], [address], 06/27/2024 21:35:46 07/04/2024 MRI, pelvis, w/o contrast completed [address], [address], 07/10/2024 09:31:14 Procedure Notes None recorded. Medical Equipment None Reported. Allergies No known drug allergies Medications Name Sig Start Date Stop Date Status Note LastModified by Organization Details LastModified Time Prescript ion - Prior Authoriza tion Request 11/15 completed Not Available Not Available Not Available fluconazo le 100 mg tablet TAKE 1 TABLET BY MOUTH EVERY DAY 03/16 completed Not Available Not Available Not Available clindamyc in HCl 300 mg capsule TAKE ONE CAPSULE BY MOUTH EVERY 8 HOURS UNTIL ALL TAKEN 08/13 completed Not Available Not Available Not Available hydrocodo ne 5 mg-acetam inophen 325 mg tablet TAKE 1 TABLET BY MOUTH EVERY 4 HOURS NEEDED 07/30 completed Not Available Not Available Not Available fluocinon chalino 0.05 % topical gel APPLY TO AFFECTED SORES TWICE DAILY UNTIL RESOLVED . 03/16 completed Not Available Not Available Not Available polysacch aride iron complex 150 mg iron capsule TAKE 1 CAPSULE EVERY DAY BY ORAL ROUTE, FOR ANEMIA. active Not Available Not Available No t Available dextroamp hetamine- amphetami ne 10 mg tablet Take 1 tablet every day by oral route in the morning. active Not Available Not Available No t Available phentermi ne 37.5 mg tablet 08/13 completed Not Available Not Available Not Available meloxicam 7.5 mg tablet Take 1 tablet every day by oral route. 03/16 completed Not Available Not Available Not Available triamcino lone acetonide 0.1 % dental paste TAKE 1 APPLICAT ION TWICE A DAY BY DENTAL ROUTE. 03/16 completed Not Available Not Available Not Available baclofen 10 mg tablet Take 1 tablet twice a day by oral route. 11/11 completed Not Available Not Available Not Available clotrimaz ole-betam ethasone 1 %-0.05 % topical cream PLEASE SEE ATTACHED FOR DETAILED DIRECTIO NS 03/16 completed Not Available Not Available Not Available dextroamp hetamine- amphetami ne ER 10 mg 24hr capsule,e xtend release TAKE 1 CAPSULE BY MOUTH EVERY DAY IN THE MORNING 03/16 completed Not Available Not Available Not Available sertralin e 50 mg tablet TAKE 1 TABLET BY MOUTH EVERY DAY 08/13 completed Not Available Not Available Not Available metoclopr amide 10 mg tablet TAKE 1 TABLET BY MOUTH FOUR TIMES DAILY 08/13 completed Not Available Not Available Not Available amoxicill in 875 mg-potass ium clavulana te 125 mg tablet Take 1 tablet every 12 hours by oral route. 03/16 completed Not Available Not Available Not Available rosuvasta tin 10 mg tablet Take 1 tablet every day by oral route. active Not Available Not Available No t Available duloxetin e 30 mg capsule,d elayed release TAKE 1 CAPSULE BY MOUTH EVERY DAY 03/16 completed Not Available Not Available Not Available hydrocodo ne 5 mg-acetam inophen 300 mg tablet 06/26 completed Not Available Not Available Not Available varenicli ne tartrate 0.5 mg (11)-1 mg (42) tablets in a dose pack TAKE DIRECTED active Not Available Not Available No t Available EluRyng 0.12 mg-0.015 mg/24 hr vaginal ring USE DIRECTED CONTINUO USLY 08/13 completed Not Available Not Available Not Available Wegovy 0.25 mg/0.5 mL subcutane ous pen injector 03/16 completed approved - expires 4 Not Available Not Available Not Available Vitals Date Recorded Body height Body mass index (BMI) Body weight Heart rate Respiratory rate Body temperature Systolic blood pressure Diastolic blood pressure Provider Name and Address Organization Details Last Updated DateTime 4 170.18 cm 37.6 kg/m2 152212. 17 g 73 /min 16 /min 97.8 [degF] 128 mm[Hg] 89 mm[Hg] Tracee Allen [facility] 4 11:42:35 Date Recorded Body height Body mass index (BMI) Body weight Body temperature Respiratory rate Heart rate Provider Name and Address Organization Details Last Updated DateTime 4 170.18 cm 35.1 kg/m2 285706. 69 g 97.7 [degF] 16 /min 65 /min Tracee Allen [facility] 4 11:19:14 Date Recorded Systolic blood pressure Diastolic blood pressure Provider Name and Address Organization Details Last Updated DateTime 11/12/2023 130 mm[Hg] 85 mm[Hg] Giselle Velez MD [address] [facility] [address], [place], [address], [facility] 11/12/2023 11:51:53 Date Recorded Body height Body mass index (BMI) Body weight Body temperature Respiratory rate Heart rate Systolic blood pressure Diastolic blood pressure Provider Name and Address Organization Details Last Updated DateTime 4 170.18 cm 34 kg/m2 89855.5 4 g 97.4 [degF] 16 /min 73 /min 132 mm[Hg] 98 mm[Hg] Tracee Tanaly [facility] 4 14:44:11 Date Recorded Body height Body mass index (BMI) Body weight Body temperature Respiratory rate Heart rate Systolic blood pressure Diastolic blood pressure Provider Name and Address Organization Details Last Updated DateTime 4 170.18 cm 32.7 kg/m2 97189.8 1 g 97.5 [degF] 16 /min 54 /min 118 mm[Hg] 80 mm[Hg] [facility] 09:27[facility]58 Date Recorded Body height Body mass index (BMI) Body weight Body temperature Heart rate Respiratory rate Systolic blood pressure Diastolic blood pressure Provider Name and Address Organization Details Last Updated DateTime 4 170.18 cm 29.8 kg/m2 11108.5 5 g 98 [degF] 87 /min 16 /min 124 mm[Hg] 79 mm[Hg] Tracee Tiffany [facility] 4 19:01:02 Social History Question Answer Notes LastModified by Organizat ion Details LastModified Time Tobacco Smoking Status Never Smoker vap Giselle Velez MD [address] [place] [address] [address], [place], [address], [facility] 04/23/2023 12:53:46 What Is The Highest Grade Or Level Of School You Have Completed Or The Highest Degree You Have Received? [id number] Information not available 04/23/2023 Have There Been Any Changes To Your Family Or Social Situation? No Information no t available 04/23/2023 What Is Your Relationship Status? Information not available 04/23/2023 Sex: Unknown Functional Status None recorded. Mental Status None recorded. Family History Relationship Description Onset Age of this Age Resolved Age Notes LastModified by Organization Details LastModified Time Father Coronary arterioscler osis 38 [email or web address] Not available 2022 15:56:08 Medical History No medical history recorded. Gynecological HistoryNo gynecological history recorded. Obstetrics History GPAL:G 0 P 0 0 0 0 Immunizations Vaccine Type Date Status Note Provider Nam e and Address Organization Details Recorded Time Tdap 04/25/2021 completed Giselle Velez MD [address], [place], [address], [facility] 08/13/2022 15:59:08 SARS-COV-2 (COVID-19) vaccine, UNSPECIFIED 05/16/2021 [facility] 11:38:34 influenza, unspecified formulation 05/26/2024 completed Giselle Velez MD [address], [place], [address], [facility] 06/26/2024 19:20:40 Past Encounters Encounter ID Performer Location Encounter Start Date Encounter Closed Date Diagnosis/Indication Diagnosis SNOMED-CT Code Diagnosis ICD10 Code Diagnosis Note [id number] Giselle Velez MD [facility], [facility] [address] [place] [address] 08/13/2022 14:31:07 08/13/2022 17:01:40 Body mass index 30+ - obesity 067349197 Z68.34 Adult heal th examination 697661512 Z00.00 Ex-smoker 0405590 Z87.89 1 quit 2019 after 11 year , 1 PPD Vaping 717199550 Z77.29 Family his tory of coronary arteriosclerosis 169514035 Z82.49 Anxiety 97761085 F41.9 no SI , No HI Screening for malignant neoplasm of cervix 092381243 Z12.4 per pt had PAP 01/2022 Active or passive immunization 903167852 Z23 up to date Viral screening 60621777 4 Z11.59 History of human papilloma virus infection 5950231265 07164 Z86.19 per pt history 2017 Snoring 38282098 R06.83 Neck pain 43497573 M54.2 Numbness of foot 7844374 00 R20.0 Rt foot Numbness of hand 4339736 04 R20.0 Tattoo of skin 313474607 1 02 L81.8 recheck hep C [id number] Giselle Velez MD [facility], [facility] [address] [place] [address] 04/23/2023 11:52:23 04/23/2023 12:58:39 Anemia 231238094 D64.9 Body mass index 30+ - obesity 342220312 Z68.34 will continue reduced calorie diet, and exercise. will add [employer] his tory of coronary arteriosclerosis [id number] Z82.49 last EKG 08/13/22 Tattoo of skin [id number] 1 02 L81.8 recheck hep C Screening for malignant neoplasm of cervix 470417031 Z12.4 per pt had PAP 01/2022 Active or passive immunization 257502391 Z23 up to date Attention deficit hyperactivity disorder, predominantly inattentive type 80064208 F90.0 Low back pain 787200279 M54.50 Screening procedure 2012 5006 Z13.9 per pt had optometry 11/2022 [id number] Giselle Velez MD [facility], [facility] [address] [place] [address] 08/13/2023 11:30:30 08/13/2023 12:26:28 Numbness of foot [id number] R20.0 Lt footNL MRI L spine 05/21/23la bs done 08/03/23 Body mass index 30+ - obesity 067947537 Z68.34 will continue reduced calorie diet, and exercise. will add Love Attention deficit hyperactivity disorder, predominantly inattentive type 71393519 F90.0 Low back pain 006432615 M54.50 Screening for malignant neoplasm of cervix 518027279 Z12.4 per pt had PAP 08/03/23 Active or passive immunization 840426203 Z23 up to date Screening procedure 2012 5006 Z13.9 per pt had optometry 11/2022 [id number] Giselle Velez MD [facility], [facility] [address] [place] [address] 11/12/2023 11:00:52 11/12/2023 12:12:47 Palpitations 05217573 R00.2 decrease caffeine Anxiety 99545947 F41.9 no SI , No HI Body mass index 30+ - obesity 671995997 Z68.34 will continue reduced calorie diet, and exercise. Cold feet 481653742 R20. 8 with decrease DP pulse Hyperlipid emia screening 366450920 Z13.220 Epigastric pain 05271051 R10.13 [id number] Giselle Velez MD [facility], [facility] [address] [place] [address] 01/10/2024 14:32:59 01/10/2024 15:12:05 Aphthous ulcer of mouth 219666684 K12.0 Mixed hyperlipidemia 267 917615 E78.2 resuva 10 Body mass index 30+ - obesity 659354865 Z68.34 will continue reduced calorie diet, and exercise.d own 7 LBs Lateral ce rvical lymphadenopathy 215887837 R59.0 Localized eruption of skin 344694869 R21 Candidiasis of vagina 72 828740 B37.31 [id number] Giselle Velez MD [facility], [facility] [address] [place] [address] 03/16/2024 09:19:56 03/16/2024 10:28:03 Mixed hyperlipidemia 175854075 E78.2 resuva 10 Urgent emily asad to urinate 60209815 R39.15 seen urology , doing PT Attention deficit hyperactivity disorder, predominantly inattentive type 82211322 F90.0 Body mass index 30+ - obesity 339901874 Z68.34 will continue reduced calorie diet, and exercise.d own 8 LBs Vaping 581448857 Z77.29 Screening for malignant neoplasm of cervix 923227417 Z12.4 per pt had PAP 08/03/23 Active or passive immunization 834483067 Z23 up to date Cervical lymphadenopathy 992675377 R59.[address] 04/2024 Numbness of foot 8995341 00 R20.0 Lt footNL MRI L spine 05/21/23se en neurology and had NCS 09/2023 Bilateral hip joint pain [id number] M25.551 [id number] Giselle Velez MD [facility], [facility] [address] [place] [address] 06/26/2024 18:49:11 06/26/2024 19:32:47 Anemia 657479462 D64.9 per pt had CBC @ [facility] 04/2024 Body mass index 30+ - obesity 484296221 Z68.34 will continue reduced calorie diet, and exercise.d own 19 LBs on diet and exercise Mixed hyperlipidemia 267 869378 E78.2 resuva 10 Endometrio sis of pelvis 40584304 N80.9 seen [employer] , had surgery Screening for malignant neoplasm of cervix 397894391 Z12.4 per pt had PAP 08/03/23 Active or passive immunization 156043041 Z23 up to date Long-term drug therapy 198557953 Z79.891 Marijuana user 175453870 F12.90 ducation Health Concerns Section Related Observation LastModified by Organization Detai ls LastModified Time None Recorded Concern Status LastModified by Organization Details LastModified Time None Recorded Advance Directives Directive None Recorded Payers Encounter Date Sequence Insurance Name Policy Number Policy Rudd Covered Member ID Rudd Member ID Guarantor Name 08/13/2023 1 [place] [id number] Mackencie Hise [id number] Dee Hise 11/12/2023 1 [place] [id number] Mackencie Hise [id number] Dee Hise 01/10/2024 1 [place] [id number] Mackencie Hise [id number] Dee Hise 03/16/2024 1 [place] [id number] Mackencie Hise [id number] Dee Hise 06/26/2024 1 [place] [id number] Mackencie Hise [id number] Dee Hise Notes Date Note Type Note Provider Name and Address Organization Details Recorded Time 08/13/2023 text/html Hypertension F/UReported bypatient.Medicati ons:taking medications as directed; no side effects from medication Lifestyle:regular exercise; limiting/avoiding salt; compliant with low salt diet Associated Symptoms:no dizziness; no lightheadedness; no chest pain; no shortness of breath; no palpitations; no edema; no calf pain with exertion; no headache still have LBP , Lt foot numbness , weeks , no injury Giselle Velez MD [address] [facility] [address], [place], [address], [facility] 08/13/2023 12:07:01 11/12/2023 text/html Hypertension F/UReported bypatient.Medicati ons:taking medications as directed; no side effects from medication Lifestyle:regular exercise; limiting/avoiding salt; compliant with low salt diet Associated Symptoms:no dizziness; no lightheadedness; no chest pain; no shortness of breath; no edema; no calf pain with exertion; no headache;palpitati ons upper abd pain on and off monthscold feet Giselle Velez MD [address], [place], [address], [facility] 11/12/2023 11:53:18 01/10/2024 text/html Hypertension F/UReported bypatient.Medicati ons:taking medications as directed; no side effects from medication Lifestyle:regular exercise; limiting/avoiding salt; compliant with low salt diet Associated Symptoms:no dizziness; no lightheadedness; no chest pain; no shortness of breath; no palpitations; no edema; no calf pain with exertion; no headache aphthous ulcer , mouth ,LN on the neck not [facility] endo , doing ACTH suppression testlt thigh rash Giselle Velez MD [address], [place], [address], [facility] 01/10/2024 15:08:02 03/16/2024 text/html Hypertension F/UReported bypatient.Medicati ons:taking medications as directed; no side effects from medication Lifestyle:regular exercise; limiting/avoiding salt; compliant with low salt diet Associated Symptoms:no dizziness; no lightheadedness; no chest pain; no shortness of breath; no palpitations; no edema; no calf pain with exertion; no headache still have Lt foot numbness ,wants to go back on adderallB/L hip pian on and off Giselle Velez MD [address], [place], [address], [facility] 03/16/2024 10:24:33 06/26/2024 text/html Hypertension F/UReported bypatient.Medicati ons:taking medications as directed; no side effects from medication Lifestyle:regular exercise; limiting/avoiding salt; compliant with low salt diet Associated Symptoms:no dizziness; no lightheadedness; no chest pain; no shortness of breath; no palpitations; no edema; no calf pain with exertion; no headache Giselle Velez MD [address] [place] [address], [place], [address], [facility] 06/26/2024 19:26:26 OBGyn Episode No OBEpisode recorded.
[2024-08-25] MEDS: LACTATED RINGERS 1,000 ML 30 ML IV CONT ×2 (06:45→08:40)
[2024-08-25] MEDS: KETOROLAC 15 MG/ML VIAL (*BKC) IV PUSH (06:48)
[2024-08-25] MEDS: ACETAMINOPHEN 500 MG TABLET 1000 MG PO ×3 (06:48→19:00)
--- NOTE | 2024-08-25 07:05 | WPDHPUPDATE1 ---
History and Physical Update Update Date/Time: 08/25/24 07:05 History and Physical has been reviewed, including an updated exam of the patient. There are NO changes in the patient's condition. Risks, benefits, and alternatives have been discussed and questions answered. Patient agrees to proceed with procedure.
--- NOTE | 2024-08-25 07:14 | P.PNAN_ITS ---
Anes - Initial Pre Proc Eval Procedure: Operation Date: 08/25/24 07:30 Proposed Procedures p Robotic Assisted Total Vaginal Hysterectomy with Bilateral Salpingectomy - Prashanth Paz MD Date/Time: 08/25/24 07:14 Surgeon: Prashanth Paz MD Pre Op Diagnosis: Enlarged Uterus, Pelvic Pain, Dysmenorrhea Patient Data Age: 34 Gender: F Height: 1.7 m Weight: 84.6 kg Last Vital Signs Temp 36.4 C L 08/25/24 06:27 Pulse 56 L 08/25/24 06:27 Resp 16 08/25/24 06:27 BP 105/67 08/25/24 06:27 Pulse Ox 99 08/25/24 06:27 Allergies Allergy/AdvReac Type Severity Reaction Status Date / Time No Known Allergies Allergy Verified 08/25/24 07:09 Home Medications ?Medication ?Instructions ?Recorded ?Confirmed ?Type dextroamphetamine-amphetamine ER 10 mg PO DAILY 03/24/24 08/25/24 History 10 mg 24hr capsule,extend release polysaccharide iron complex 150 mg 150 mg PO DAILY 03/24/24 08/25/24 History iron capsule rosuvastatin 10 mg tablet 10 mg PO DAILY 03/24/24 08/25/24 History hydrocodone 5 mg-acetaminophen 325 1 tablet PO Q4H PRN pain #30 tabs 08/25/24 Rx mg tablet Patient hx anesthesia problems: none Family hx anesthesia problems: none Results Review: All pre-operative results and documents have been reviewed as part of the pre- operative evaluation. [facility] Past Medical History Medical History (Updated 08/25/24 @ 07:15 by Adis Batista DO) ADHD Hyperlipidemia Dyspareunia Pelvic pain Surgical History Surgical History Previous section Family History Family History Father Mother High cholesterol Colostomy in place Colonic disorder Social History Social History Years smoked: 3 Smoking status: Former smoker Tobacco type: e-cigarettes/vaping Second hand tobacco smoke exposure: Yes Additional smoking assessment comments: PT USES VAPE DAILY FOR LAST 3 YEARS 05/18/24 Alcohol intake: current Alcohol use details: 2x/week Substance use: current Substance use type: marijuana Other substance usage details: nightly Last use: 08/29/22 Lack of Transportation: No Lack of Food: Never True Current Housing: I Have Housing Concerned About Future Housing: No Difficulty Paying Gas/Electric Bills: No Difficulty Paying for Meds: No Currently Unemployed: No Education: Bachelor's Degree Difficulty w/ Childcare or Family Care: No Living arrangements: with family Spiritual care concerns: No Anes - Eval Final PreProcedure Day of Procedure 08/25/24 07:14 Patient weight: overweight Heart: regular rate and rhythm Lungs: clear to auscultation Airway: Mallampati scale class II Neurological: alert and oriented Last oral intake: >/= 8 hours ASA classification: II Emergent: no Anesthetic plan: proceed Anesthesia type and monitoring: general ETT and standard monitoring Results Review: All pre-operative results and documents have been reviewed as part of the pre- operative evaluation. Informed Consent: The patient's anesthetic plan and its attendant risks and benefits were discussed with the patient/family/POA. Questions were solicited and answers provided to the satisfaction of the patient/family/POA.
[2024-08-25] MEDS: ceFAZolin 2 GM/D5W 50 ML 2 GM/50 ML BAG IVPB (07:28)
--- NOTE | 2024-08-25 08:26 | P.OP_ITS ---
Procedure Note - Detailed Date of Procedure 08/25/24 Pre-op Diagnosis Enlarged Uterus, Pelvic Pain, Dysmenorrhea Post-op Diagnosis Same Procedure Performed Attic total vaginal hysterectomy and bilateral salpingectomy Surgeon Prashanth Paz MD Anesthesia General Indications 34-year-old female multiparous with an enlarged uterus and bleeding Findings Enlarged uterus. Tubes status post tubal ligation Description of Procedure The patient is prepped draped sterile fashion placed in the dorsal lithotomy position. Under excellent general trach anesthesia weighted speculum placed in posterior fornix vagina. Anterior lip of the cervix grasped with single-tooth tenaculum. Uterus sounded to 11cm. Serial dilatation with fragmented dilators performed followed by passage of the 10. MUKESH and the 3. Cold cup. Next the 16 Portuguese catheter was placed in the bladder drained clear urine. The weighted speculum was removed as with the single-tooth and the gloves were changed. Supraumbilical incision made. Veress needle passed in the abdomen. Abdomen filled with CO2 gas [id number]. The 8mm trocar advanced in the abdomen. Downside visualized no injury seen. Patient placed in Trendelenburg and right left lateral quadrant incisions made. 8mm trocars advanced under direct visualization assuring no injury. Right upper quadrant incision made the 8mm trocar advanced under direct visualization assuring no injury. The robot was docked. Attention was turned to the group home counselor. The left round ligament was grasped, burned, cut. Anterior bladder flap was formed by sharply dissecting the peritoneum and reflecting it caudally away from the cervix uterus this was done layer by layer a cervix previous scar tissue over the bladder. This was brought to the opposite round ligament grasped, burned, cut. Next the distal portion of the fallopian tube was sharply dissected off the left and passed through the right upper quadrant. The proximal portion was sharply dissected away and left attached to its uterine origin. In similar fashion on the right the distal portion of the fallopian tube that was remained was sharply dissected off the ovary and passed through the right upper quadrant incision. The proximal poor velasquez was dissected away from the ovary and left attached to its uterine origin. The utero-ovarian ligament on the left was skeletonized to conserve the left ovary clamped, burned, cut and brought to the level of previously cut round ligament. Similarly on the right conserving the right ovary, the and utero- ovarian ligament was skeletonized clamping burning cutting and bringing this to the previously cut round ligament. The cardinal broad ligaments on the left were serially skeletonized clamping burning cutting and hugging the cervix uterus until the large tortuous vessels were seen on the left these were individually clamped, burned, cut. In similar fashion the cardinal broad ligaments on the right were serially skeletonized clamping burning cutting until the large tortuous vessels on the right could be seen these were individually clamped, burned, cut. Blanching the uterus was noted colpotomy incision was made. Cervix uterus and proximal portions of tubes removed through the vagina. The vagina then closed with continuous running 0V lock from lateral edge to lateral edge back to midline. Irrigation undertaken to clear and hemostasis was assured. Whitakers term was placed over the raw surface area and hemostasis was assured blood loss estimated 5cc. The robot was undocked. The gas removed from the abdomen. The trocars removed the incisions closed with 4-0 Monocryl glue. The patient was awakened went recovery in satisfactory condition. All sponge, needle, instrument counts were correct. There were no immediate complications Estimated Blood Loss 25 Drains No Packing No Pathology Yes Complications No immediate complications Condition Stable Disposition PACU
--- NOTE | 2024-08-25 08:31 | P.DS_ITS ---
DS: Admitting Diagnosis Discharge Date 08/26/2024 Admitting Diagnosis Enlarged uterus/dysmenorrhea DS: Discharge Diagnosis Discharge Diagnosis (1) Dysmenorrhea: Code(s): N94.6 - Dysmenorrhea, unspecified Status: Acute (2) Enlarged uterus: Code(s): N85.2 - Hypertrophy of uterus Status: Acute DS: Summary Hospital Course Reason for hospitalization: Patient was admitted for robotic total vaginal hysterectomy bilateral salpingectomy on 08/25/2024. Hospital Course: Patient's hospital course unremarkable. She remained afebrile. She was up, voiding without difficulty, eating regular diet, ambulating, and generally without complaints Time Spent with Patient Time attestation: Total time spent providing and/or coordinating discharge services: Exam Const: General: cooperative, healthy appearing and comfortable Nutritional Appearance: average body habitus Orientation/consciousness: oriented to person, oriented to place and oriented to time HENMT: Head: normal to inspection Resp: Effort & Inspection: normal respiratory effort Cardio: Rate: regular rate Rhythm: regular rhythm Heart sounds: S1 normal heart sound present and S2 normal heart sound present GI: Inspection: normal to inspection and incision (Wound is clean dry and intact) DS: Data Data Completed and Pending Pending studies at discharge: Pending at discharge 08/25/24 07:58 Surgical [PTH] Routine Discharge Plan Discharge Patient Disposition: Home, Self-Care Patient Language: Martiniquais Stand Alone Forms: General Discharge Instructions Follow-up/Referrals: Prashanth Mitchell MD [Physician] - Discharge Medications: New hydrocodone-acetaminophen 5-325 mg tablet 1 tablet PO Q4H PRN (Reason: pain) Qty: 30 0RF No Action polysaccharide iron complex 150 mg iron capsule 150 mg PO DAILY dextroamphetamine-amphetamine 10 mg capsule,extended release 24hr 10 mg PO DAILY rosuvastatin 10 mg tablet 10 mg PO DAILY
[2024-08-25] MEDS: fentaNYL CITRATE INJ (*CRX) 100 MCG/2 ML VIAL 25 MCG IV PUSH ×4 (09:03→10:04)
[2024-08-25] MEDS: DEXTROSE 5%/LACTATED RINGERS 1,000 ML 125 ML IV CONT (10:43)
[2024-08-25] MEDS: oxyCODONE HCL (*CRX) 5 MG TAB IR PO ×3 (10:45→17:27)
--- NOTE | 2024-08-25 11:15 | PC.NURSE ---
This patient, Dee Moy, was received from PACU on 08/25/24 at 1025. Patient/family oriented to unit policies and routines
[2024-08-25] MEDS: SIMETHICONE 80 MG TAB.CHEW PO ×2 (11:21→17:27)
[2024-08-25] MEDS: DOCUSATE SODIUM 100 MG CAPSULE PO (12:32)
[2024-08-25] MEDS: KETOROLAC 30 MG/ML VIAL (*BKC) IV PUSH ×2 (12:33→19:00)
[2024-08-26] MEDS: oxyCODONE HCL (*CRX) 5 MG TAB IR PO ×2 (01:00→09:20)
[2024-08-26] MEDS: ACETAMINOPHEN 500 MG TABLET 1000 MG PO ×2 (01:00→07:21)
[2024-08-26] MEDS: KETOROLAC 30 MG/ML VIAL (*BKC) IV PUSH (01:00)
[2024-08-26 04:56] VITALS: BP 98/66; PULSE 65; RESP 18; TEMP 36.7; O2SAT 99
[2024-08-26 06:27] LABS: Basophils Percent Auto 0.4 % (0.2-1.2); Eosinophils Absolute Auto 0.4 K/mm3 (0-0.3); Eosinophils Percent Auto 4.7 % (0-4.4); Hematocrit 38.7 % (37.0-47.0); Hemoglobin 12.9 g/dL (12.0-15.0); Immature Granulocyte Absolute 0.02 K/mm3 (0.00-0.031); Immature Granulocyte Percent A 0.3 % (0-0.5); Lymphocytes Absolute Auto 1.76 K/mm3 (0.9-3.2); Lymphocytes Percent Auto 22.3 % (18.3-44.2); Mean Corpuscular HGB Conc 33.3 g/dl (32-36); Mean Corpuscular Hemoglobin 29.7 pg (26-34); Mean Corpuscular Volume 89.2 fl (80-100); Mean Platelet Volume 11.1 fl (7.4-10.4); Monocytes Absolute Auto 0.5 K/mm3 (0.1-0.6); Monocytes Percent Auto 6.3 % (2.6-8.5); Neutrophils Absolute Auto 5.2 K/mm3 (1.3-6.7); Platelet Count Result 217 k/mm3 (150-375); Red Blood Count 4.34 M/mm3 (4.2-5.4); Red Cell Distribution Width 12.4 % (11.5-14.5); White Blood Count 7.9 K/mm3 (4.5-10.0)
[2024-08-26 07:00] VITALS: BP 105/65; PULSE 98; RESP 16; TEMP 36.4
[2024-08-26] MEDS: ENOXAPARIN 40 MG/0.4 ML SYRINGE SUB-Q (07:20)
[2024-08-26] MEDS: DOCUSATE SODIUM 100 MG CAPSULE PO (07:21)
[2024-08-26] MEDS: IBUPROFEN 600 MG TABLET PO (07:21)
[2024-08-26] MEDS: SIMETHICONE 80 MG TAB.CHEW PO (07:21)
--- NOTE | 2024-08-26 07:26 | PM.GYNPNOP ---
INTERNAL REVENUE AGENT - A/P Assessment and plan (1) Enlarged uterus: Code(s): N85.2 - Hypertrophy of uterus Status: Acute (2) Dysmenorrhea: Code(s): N94.6 - Dysmenorrhea, unspecified Status: Acute Plan home a follow-up 2 weeks Postoperative Procedures: Procedures Operation Date: 08/25/24 07:30 Actual Procedure Side Surgeon p Robotic Assisted Total Vaginal Hysterectomy with Bilateral Salpingectomy Bilateral Prashanth Paz MD Time Spent With Patient Time: Total time spent is greater than 50% in coordination of care (as documented) at patient's floor/unit and/or counseling patient: Time with patient: less than 15 minutes INTERNAL REVENUE AGENT- PN:Subj Post-Op Subjective Date/time seen: 08/26/24 07:26 Subjective: patient reports feeling better, patient has no complaints, patient desires discharge, pain is well controlled and patient is tolerating oral intake Exam Const: General: cooperative, healthy appearing and comfortable Nutritional Appearance: average body habitus Orientation/consciousness: oriented to person, oriented to place and oriented to time HENMT: Head: normal to inspection Resp: Effort & Inspection: normal respiratory effort Cardio: Rate: regular rate Rhythm: regular rhythm Heart sounds: S1 normal heart sound present and S2 normal heart sound present GI: Inspection: normal to inspection and incision (Wound is clean dry and intact) INTERNAL REVENUE AGENT - PN: Obj Data Vital Signs Vital Signs: Vital Signs - 24 hr 08/25/24 08:40 08/25/24 08:55 08/25/24 09:10 Temperature 97.8 F Pulse Rate 49 L 50 L 48 L Respiratory Rate 17 16 12 Blood Pressure 107/59 L 120/82 123/80 Pulse Oximetry 100 100 100 Oxygen Delivery Simple Face Mask Simple Face Mask Simple Face Mask Oxygen Flow Rate 8 8 8 08/25/24 09:25 08/25/24 09:40 08/25/24 09:55 Temperature Pulse Rate 47 L 46 L 53 L Respiratory Rate 12 10 L 14 Blood Pressure 120/71 110/74 109/65 Pulse Oximetry 99 99 94 Oxygen Delivery Room Air Room Air Room Air Oxygen Flow Rate 08/25/24 10:10 08/25/24 10:30 08/25/24 16:00 Temperature 99.1 F 97.7 F Pulse Rate 58 L 52 L 50 L Respiratory Rate 20 14 16 Blood Pressure 112/78 112/70 122/76 Pulse Oximetry 94 97 98 Oxygen Delivery Room Air Oxygen Flow Rate 08/25/24 19:00 08/25/24 23:00 08/25/24 23:00 Temperature 97.9 F 98.1 F Pulse Rate 58 L 55 L Respiratory Rate 18 18 Blood Pressure 103/79 135/69 Pulse Oximetry 98 99 Oxygen Delivery Room Air Oxygen Flow Rate 08/26/24 04:56 08/26/24 04:56 Temperature 98.1 F Pulse Rate 65 Respiratory Rate 18 Blood Pressure 98/66 L Pulse Oximetry 99 Oxygen Delivery Room Air Oxygen Flow Rate Intake/Output Intake/Output: Intake & Output 08/23/24 08/24/24 08/25/24 08/26/24 23:59 23:59 23:59 23:59 Intake Total 2090 Output Total 980 Balance 1110 Meds/Results Medications: Active Medications Generic Name Dose Route Start Last Admin Trade Name Freq PRN Reason Stop Dose Admin Acetaminophen 1,000 mg 08/25/24 12:00 08/26/24 07:21 Acetaminophen 500 Mg Tablet PO 1,000 mg Q6HR EL Administration Docusate Sodium 100 mg 08/25/24 10:16 08/26/24 07:21 Docusate Sodium 100 Mg Capsule PO 100 mg BID EL Administration Enoxaparin Sodium 40 mg 08/25/24 10:16 08/26/24 07:20 Enoxaparin 40 Mg/0.4 Ml Syringe SUB-Q 40 mg DAILY EL Administration Dextrose/Lactated Ringer's 1,000 mls @ 125 mls/hr 08/25/24 10:16 08/25/24 18:43 Dextrose 5%/Lactated Ringers IV CONT Infused .Q8H EL Infusion Ibuprofen 600 mg 08/26/24 06:00 08/26/24 07:21 Ibuprofen 600 Mg Tablet PO 600 mg Q6HR EL Administration Naloxone HCl 0.1 mg 08/25/24 10:16 Naloxone Hcl 0.4 Mg/Ml Vial IV PUSH Q2M PRN Respiratory rate less than 10 Ondansetron HCl 4 mg 08/25/24 10:16 Ondansetron Inj 4 Mg/2 Ml Vial IV PUSH Q6H PRN Nausea And Vomiting Oxycodone HCl 5 mg 08/25/24 10:16 08/26/24 01:00 Oxycodone Hcl (*Crx) 5 Mg Tab Ir PO 5 mg Q4H PRN Administration Pain Rated 4-6 Oxycodone HCl 10 mg 08/25/24 10:16 Oxycodone Hcl (*Crx) 5 Mg Tab Ir PO Q6H PRN Pain Rated 7-10 Simethicone 80 mg 08/25/24 12:00 08/26/24 07:21 Simethicone 80 Mg Tab.Chew PO 80 mg TIDWM EL Administration Labs 08/26/24 05:17 Labs: Laboratory Results - last 24 hr 08/26/24 05:17 WBC 7.9 RBC 4.34 Hgb 12.9 Hct 38.7 MCV 89.2 MCH 29.7 MCHC 33.3 RDW 12.4 Plt Count 217 MPV 11.1 H Immature Gran % (Auto) 0.3 Neut % (Auto) 66.0 Lymph % (Auto) 22.3 Green % (Auto) 6.3 Eos % (Auto) 4.7 H Baso % (Auto) 0.4 Lymph # (Auto) 1.76 Green # (Auto) 0.5 Eos # (Auto) 0.4 H Baso # (Auto) 0.0 Abs Immat Gran (auto) 0.02 Absolute Neuts (auto) 5.2 Absolute Nucleated RBC 0.000 Nucleated RBC % 0.0
--- NOTE | 2024-08-26 10:15 | WPDANESPN ---
Anes - Prog Note Post-Op Date/Time: 08/26/24 10:15 Cardiovascular status: normal Respiratory status: normal Airway patency: baseline Mental status: baseline Post-Op hydration status: normal Vital Signs: Last Vital Signs Temp 36.4 C 08/26/24 07:00 Pulse 98 08/26/24 07:00 Resp 16 08/26/24 07:00 BP 105/65 08/26/24 07:00 Pulse Ox 99 08/26/24 04:56 O2 Del Method Room Air 08/26/24 04:56 O2 Flow Rate 8 08/25/24 09:10 Pain Score (VAS): 0 I/O: Intake & Output 08/25/24 08/26/24 08/26/24 23:59 07:59 15:59 Intake Total 1000 Output Total 400 Balance 600 Laboratory Tests 08/26/24 05:17 08/26/24 05:17 WBC 7.9 RBC 4.34 Hgb 12.9 Hct 38.7 MCV 89.2 MCH 29.7 MCHC 33.3 RDW 12.4 Plt Count 217 MPV 11.1 H Immature Gran % (Auto) 0.3 Neut % (Auto) 66.0 Lymph % (Auto) 22.3 [place] % (Auto) 6.3 Eos % (Auto) 4.7 H Baso % (Auto) 0.4 Lymph # (Auto) 1.76 [place] # (Auto) 0.5 Eos # (Auto) 0.4 H Baso # (Auto) 0.0 Abs Immat Gran (auto) 0.02 Absolute Neuts (auto) 5.2 Absolute Nucleated RBC 0.000 Nucleated RBC % 0.0 Post-procedural complaints: none Patient Feedback: Patient satisfied with anesthetic care.
== END 2024-08-26 10:10 | disposition home or self-care (01) ==
LOC: ANHSURGERY 07:06 → ANHOB2 10:20
PROVIDERS: PCP Internal Medicine; Visit Provider Obstetrics & Gynecology
PROC: (CPT 58552; principal; 2024-08-25 07:30)
DX: N88.8 Other specified noninflammatory disorders of cervix uteri (principal); N80.03 Adenomyosis of the uterus; N94.89 Other specified conditions associated with female genital organs and menstrual cycle; N83.8 Other noninflammatory disorders of ovary, fallopian tube and broad ligament; E78.5 Hyperlipidemia, unspecified; F90.9 Attention-deficit hyperactivity disorder, unspecified type; F17.290 Nicotine dependence, other tobacco product, uncomplicated; F12.90 Cannabis use, unspecified, uncomplicated; Z79.891 Long term (current) use of opiate analgesic; Z98.890 Other specified postprocedural states
CPT/HCPCS: 58552; 36415; 85025; 88307; 99199; A9270; J0330; J0690; J1100; J1171; J1650; J1885; J2003; J2250; J2371; J2405; J2704; J3010; J7030; J7120; J7121